=== PATIENT | male | born 1955 | race Caucasian/White ===

== ENCOUNTER 2020-10-29 06:41 | Day surgery (SDC) | payer OTHER ==
--- NOTE | 2020-10-22 11:47 | RAD REPORT ---
EXAM DESCRIPTION: Kvng Manzanares And Shannon (2 Views)10/22/2020 11:28 am CLINICAL HISTORY: Preop for abdominal angiogram COMPARISON: 2019 FINDINGS: Bilateral interstitial lung opacities appear chronic. Lungs appear clear of acute infiltrate. The heart is normal size Postsurgical changes involve the chest. IMPRESSION: No acute abnormalities displayed
[2020-10-22 11:55] LABS: Absolute Lymphocytes (CBC) 2.7 K/uL (0.7-4.9); Basophils % 1.1 % (0-1.3); Hematocrit 44.7 % (39.6-49.0); Lymphocytes % 30.8 % (15.3-44.8); MPV 8.3 fL (7.6-11.3); RBC Red Blood Cell Count 5.03 M/uL (4.33-5.43)
[2020-10-22 11:57] LABS: Protime INR 1.03
[2020-10-29] MEDS ORDERED: HEPA 1000U/500MLS 2,000 UNIT/1,000 ML BAG IV ONE (07:04)
[2020-10-29] MEDS ORDERED: LIDOCAINE 1% 20 ML MDV ONE (07:04)
[2020-10-29 07:09] VITALS: TEMP 97.2
[2020-10-29] MEDS ORDERED: MIDAZOLAM HCL 2 MG/2 ML INJ ONE (07:10)
[2020-10-29] MEDS ORDERED: FENTANYL CITR 100 MCG/2 ML ONE (07:11)
[2020-10-29] MEDS ORDERED: ATROPINE SULF 1 MG/10 ML SYR IV ONE (07:11)
[2020-10-29] MEDS ORDERED: HEPARIN 5000 UNIT/ML 1 ML VIAL ONE (07:11)
[2020-10-29] MEDS ORDERED: NA CHLORIDE 0.9% 500 ML ONE (07:17)
[2020-10-29 09:52] VITALS: BP 146/70; O2SAT 99
== END 2020-10-29 09:54 | disposition home or self-care (01) ==
LOC: CCL 06:41
DX: I70.213 Atherosclerosis of native arteries of extremities with intermittent claudication, bilateral legs (principal); I25.10 Atherosclerotic heart disease of native coronary artery without angina pectoris; I10 Essential (primary) hypertension; Z95.1 Presence of aortocoronary bypass graft; Z20.822 Contact with and (suspected) exposure to COVID-19
CPT/HCPCS: 93005; 85025; 80048; 36415; 85610; 85730; 71046; 36200; 75630; U0003; C1893; C1760; J2250; J3010; J7040; J1644

== ENCOUNTER 2020-11-04 07:33 | Day surgery (SDC) | payer OTHER ==
[2020-11-04] MEDS ORDERED: NA CHLORIDE 0.9% 500 ML ONE (08:00)
[2020-11-04] MEDS ORDERED: HEPARIN 10,000 UNIT/10 ML VIAL IV ONE (08:55)
[2020-11-04] MEDS ORDERED: HEPA 1000U/500MLS 2,000 UNIT/1,000 ML BAG IV ONE (08:55)
[2020-11-04] MEDS ORDERED: ATROPINE SULF 1 MG/10 ML SYR IV ONE (08:55)
[2020-11-04] MEDS ORDERED: FENTANYL CITR 100 MCG/2 ML ONE (08:55)
[2020-11-04] MEDS ORDERED: MIDAZOLAM HCL 2 MG/2 ML INJ ONE (08:55)
[2020-11-04 13:33] VITALS: BP 125/63; TEMP 97.3; O2SAT 99
--- NOTE | 2020-11-04 13:43 | OP ---
Date of Procedure: 11/04/2020 Surgeon: Bryan Anglin MD Gel Coater: Mr. Aaron Delgado. Procedure: Left common iliac artery angiogram and stent. Procedure In Detail: The patient was brought to the systems testing laboratory technician today on 11/04/2020, prepped and draped in the routine sterile fashion, and a 7-Kazakh sheath introduced in the left common femoral artery s uccessfully. A Wholey wire was used to cross the lesion successfully. Following that, an Omnilink E lite 8 x 39 mm stent was deployed from the ostium of the left common iliac included the lesion itself . There was 0% residual. No complications. The patient tolerated the procedure well. Blood Loss: 5 mL. Postoperative Diagnosis: Peripheral arterial disease, status post left common iliac artery stent. Anesthesia: Total conscious sedation 45 minutes. The patient received 7500 of heparin total. The reason more heparin was given because we are actuall y went in with the BLAIR catheter from the left common iliac all the way to the right SFA to take a be tter picture of the right distal vessel below the knee. There were no focal stenosis, just low flow. Angiography of the left SFA distally showed the same things, low flow. No focal stenosis. We will continue his present medical regimen. He will be at bedrest for 2 hours after the procedure and he will go home, and I will see him in the office in the next week or 2 . SO/ALICE Voice ID: [id number] Report ID: [id number]
== END 2020-11-04 14:13 | disposition home or self-care (01) ==
LOC: CCL 07:33
DX: I70.212 Atherosclerosis of native arteries of extremities with intermittent claudication, left leg (principal); I25.10 Atherosclerotic heart disease of native coronary artery without angina pectoris; I65.23 Occlusion and stenosis of bilateral carotid arteries; I10 Essential (primary) hypertension; E78.2 Mixed hyperlipidemia; L40.50 Arthropathic psoriasis, unspecified; Z95.1 Presence of aortocoronary bypass graft; Z86.73 Personal history of transient ischemic attack (TIA), and cerebral infarction without residual deficits; Z87.891 Personal history of nicotine dependence
CPT/HCPCS: 82947 ×2; 85347 ×2; 36245; 36246; 37221; C1893; C1887; C1725; J2250; J3010; J7040; J1644; 36200

== ENCOUNTER 2021-04-08 06:51 | Day surgery (SDC) | payer OTHER ==
[2021-04-08] MEDS ORDERED: NA CHLORIDE 0.9% 1,000 ML ONE (07:20)
[2021-04-08] MEDS ORDERED: INSULIN -REGULAR HUMAN 50 UNIT/0.5 ML ML ONE (07:55)
[2021-04-08] MEDS ORDERED: LIDOCAINE 1% MPF 5 ML VIAL ONE (08:42)
[2021-04-08] MEDS ORDERED: propofoL 200 MG/20 ML VIAL IV ONE (08:42)
--- NOTE | 2021-04-08 09:37 | ENDO RPT ---
[address], [address] COLONOSCOPY PROCEDURE REPORT EXAM DATE: 04/08/2021 PATIENT NAME: Gennaro Serna MR #: [id number] BIRTHDATE: 1955 ATTENDING: Alexsander Lemus DR STATUS: outpatient ORTHOTIC PRACTITIONER: Fabby Fulton RN and Kathryn Fontaine INDICATIONS: The patient is a 65 yr old Male here for a colonoscopy due to bright red bleeding and rectal bleeding PROCEDURE PERFORMED: Colonoscopy with biopsy - cold polypectomy MEDICATIONS: Per Anesthesia. ESTIMATED BLOOD LOSS: None CONSENT: The patient understands the risks and benefits of the procedure and understands that these risks include, but are not limited to: sedation, allergic reaction, infection, perforation and/or bleeding. Alternative means of evaluation and treatment include, among others: physical exam, x-rays, and/or surgical intervention. The patient elects to proceed with this endoscopic procedure. DESCRIPTION OF PROCEDURE: During intra-op preparation period all mechanical medical equipment was checked for proper function. Hand hygiene and appropriate measures for infection prevention was taken. Procedure, possible complications, alternatives including, but not limited to possibility of bleeding, perforation, tear, infection, sepsis, need for surgery, need for blood transfusion, were explained to the patient. After the risks, benefits and alternatives of the procedure were thoroughly explained, Informed consent was verified, confirmed and timeout was successfully executed by the treatment team. The patient was placed in the left lateral position. A digital rectal exam was performed and revealed external hemorrhoids and A digital rectal exam was performed and revealed a palpable rectal mass. After appropriate level of anesthesia, the scope was passed. The EC-[id number] ([id number]) endoscope was introduced through the anus and advanced to the cecum, which was identified by both the appendix and ileocecal valve. The quality of the prep was inadequate. The instrument was then slowly withdrawn as the colon was fully examined. Scope withdrawal time was 15 minutes. COLON FINDINGS: Multiple polypoid shaped and smooth sessile polyps measuring 2-5 mm in size with friable surfaces were found throughout the entire examined colon. A polypectomy was performed using snare cautery, with a cold snare. The resection was complete but the polyp tissue was completely retrieved and sent to histology. There was a single dominant polyp in the Sigmoid colon @ 35cm from verge whish was pedunculated, approximately 10mm in size, removed with hot snare polypectomy, complete retrieval and removal was achieved and it was sent to pathology. The area was tattooed with 0.7cc of ink. The resection was complete, the polyp tissue was completely retrieved and sent to histology. A half circumferential firm, fungating and ulcerated mass with friable surfaces was found in the rectum. Multiple biopsies of the lesion were performed using cold forceps. Complete removal was not possible @ this time. Retroflexed views revealed no abnormalities. The scope was then completely withdrawn from the patient and the procedure terminated. ADVERSE EVENTS: There were no complications. IMPRESSIONS: 1. Multiple sessile polyps ranging between 3-5mm in size were found throughout the entire examined colon; polypectomy was performed using snare cautery, with a cold snare and with cold forceps 2. Half circumferential mass was found in the rectum; multiple biopsies of the lesion were performed RECOMMENDATIONS: 1. await biopsy results 2. fiber rich diet 3. avoid NSAIDS for 2 weeks 4. follow-up: office 2 week(s) 5. hemorrhoidal hygiene 6. surgery RECALL: Return in 7 day(s) for Colonoscopy, pending biopsy results. Inadequate prep - multiple polyps throughout colon Alexsander Lemus DR eSigned: Alexsander Lemus DR 04/08/2021 9:36 AM cc: CPT CODES: ICD9 CODES: PATIENT NAME: Gennaro Serna MR#: [id number]
[2021-04-08 10:37] VITALS: BP 112/50; TEMP 97.3; O2SAT 100
== END 2021-04-08 10:05 | disposition home or self-care (01) ==
LOC: OR 06:51
PROVIDERS: ATTEND Surgery
PROC: 0DBP8ZX Excision of Rectum, Via Natural or Artificial Opening Endoscopic, Diagnostic (ICD-10-PCS; 2021-04-08)
PROC: 0DBN8ZX Excision of Sigmoid Colon, Via Natural or Artificial Opening Endoscopic, Diagnostic (ICD-10-PCS; principal; 2021-04-08 08:00)
DX: K62.5 Hemorrhage of anus and rectum (principal); Z20.822 Contact with and (suspected) exposure to COVID-19; K64.4 Residual hemorrhoidal skin tags; K62.89 Other specified diseases of anus and rectum
CPT/HCPCS: 82947; 88305; 45385; 45380; U0003; J2704; J7030

== ENCOUNTER 2021-06-17 09:34 | Day surgery (SDC) | payer OTHER ==
[2021-06-15 16:17] LABS: Hematocrit 43.6 % (39.6-49.0); Lymphocytes % 34.7 % (15.3-44.8); MPV 8.8 fL (7.6-11.3); RBC Red Blood Cell Count 4.94 M/uL (4.33-5.43)
[2021-06-17] MEDS ORDERED: CEFAZOLIN SODIUM 1 GM/VIAL ONE (10:27)
[2021-06-17] MEDS ORDERED: NA CHLORIDE 0.9% 1,000 ML ONE (10:27)
[2021-06-17] MEDS ORDERED: NA CHLORIDE 0.9% 50 ML ONE (10:27)
[2021-06-17] MEDS ORDERED: NS 0.9% VIAL 20 ML ONE (12:00)
[2021-06-17] MEDS ORDERED: HEPARIN 5000 UNIT/ML 1 ML VIAL ONE (12:01)
[2021-06-17] MEDS ORDERED: BUPIVACAINE 0.25% PF 10 ML VIAL ONE (12:01)
[2021-06-17] MEDS ORDERED: FENTANYL CITR 100 MCG/2 ML ONE ×2 (12:52→14:52)
[2021-06-17] MEDS ORDERED: MIDAZOLAM HCL 2 MG/2 ML INJ ONE (12:52)
[2021-06-17] MEDS ORDERED: LIDOCAINE 2% MPF 5 ML VIAL ONE (12:52)
[2021-06-17] MEDS ORDERED: propofoL 200 MG/20 ML VIAL IV ONE (12:52)
[2021-06-17] MEDS ORDERED: EPHEDRINE SULF 50 MG/ML VIAL ONE (13:09)
[2021-06-17] MEDS ORDERED: ONDANSETRON 4 MG/2 ML VIAL ONE (13:09)
--- NOTE | 2021-06-17 14:00 | P.OP ---
Preoperative diagnosis: Rectal Cancer Postoperative diagnosis: Rectal Cancer Primary procedure: Placement of RIGHT internal jugular chemotherapy port Secondary procedure: ultrasound, flouroscopy used Anesthesia: GETA + Local Estimated blood loss: <20cc Specimen: none Findings: flouroscopy confirmed positoin Complications: None Implants: Port a cath - MRI safe Transferred to: Recovery Room Condition: Good
--- NOTE | 2021-06-17 14:18 | RAD REPORT ---
EXAM DESCRIPTION: RAD - Fluoroscopy <1 Hour - 06/17/2021 2:02 pm FINDINGS: There are total of 17 portable C-arm views obtained during fluoroscopic assisted placement of right-sided Port-A-Cath. No suspicious or unexpected findings. Fluoro time was 0.7 minutes. Cumulative dose was 11.3 mGy.
--- NOTE | 2021-06-17 14:35 | RAD REPORT ---
EXAM DESCRIPTION: RAD - Chest Single View - 06/17/2021 2:29 pm CLINICAL HISTORY: S/P CHEMOTHERAPY PORT INSERTION COMPARISON: Two view chest 10/22/2020 TECHNIQUE: AP portable chest image was obtained 06/17/2021 2:29 pm . FINDINGS: Right-sided Port-A-Cath has been placed via jugular course. Tip is in the distal SVC. No p neumothorax is present. Chronic fibrotic lung changes present in each base. No acute lung parenchymal finding. Prominent card iomediastinal silhouette has not changed. No abnormal pleural fluid collection identifiable peer No a cute bony abnormality seen. No acute aortic findings suspected. IMPRESSION: Right-sided Port-A-Cath placement with the tip in the distal SVC. No pneumothorax.
[2021-06-17 16:02] VITALS: BP 159/87; TEMP 96.7; O2SAT 99
--- NOTE | 2021-06-17 23:50 | OP ---
Date of Procedure: 06/17/2021 Surgeon: Alexsander Lemus MD, Preoperative Diagnosis: Rectal cancer. Postoperative Diagnosis: Rectal cancer. Procedure: Placement of a right internal jugular chemotherapy port with subcutaneous port using fluo roscopy and ultrasound guidance. Anesthesia: General endotracheal plus local with 0.25% Marcaine. Estimated Fluid Loss: 20 cc. Specimen: None. Findings: Fluoroscopy confirmed position as well as ultrasound. Complications: None. Implants: Port-A-Cath, MRI safe version. Disposition: The patient was transferred to recovery room in good condition. Procedure In Detail: After informed was obtained, the patient was brought to the operating room and prepped and draped in the usual sterile fashion. After adequate anesthesia was achieved, the patient was placed in steep Trendelenburg position. Using ultrasound guidance, I cannulated the right inter nal jugular vein on the first attempt using ultrasound guidance and microintroducer set. At this poi nt, the microwire was advanced. Fluoroscopy confirmed position in the confluence of the SVC and into the right atrium. At this point, a small austin incision was made over the insertion point and I plac ed the introducer sheath at this point and removed the microwire. Standard wire was then advanced th rough this without evidence of complication. Fluoroscopy confirmed position in the SVC/atrium of the standard wire at this point. At this point, I decided to cannulate the chest wall and entire tract, anesthetizing the skin for placement of a port approximately 45 cm inferior from the clavicle. I in cised the skin using a 15 blade and dissected down through subcutaneous fat using electrocautery. I removed the segment of fat down to the prepectoral fascia to allow for appropriate landing spot. At this point, I used the tunneling device to bring the port tubing up into the insertion site and sized it appropriately. At this point, approximately 24-25 cm was sized and found to be appropriate posit ioning. I attempted to place the introducer sheath at this point over the wire, but there was some d ifficulty in resistance. I suctioned the inner portion out and dilated up the tract without incident or complication under fluoroscopy, but the sheath had a small rent in the side and as such, a new se t was opened and I used a new introducer sheath. Without incident or complication, it was then advan matti easily. Fluoroscopy confirmed position. I then removed the standard wire at this point, using Zakia tian technique after the introducer sheath was placed in a good position and confirmed with fluor oscopy. I then introduced the catheter deep into the atrium, at this point and removed the introduce r sheath. At this point, I then used fluoroscopy to pull the catheter back to approximately 24 cm at the exit site on the chest wall to allow for proper positioning at the confluence of the SVC. At th is point, I trimmed the catheter appropriately after snapping the end of it off to prevent any fluid leakage and attached the lock collar to the tubing and secured the Port-A-Cath port to the tubing at this point, and secured the collar at this point. I flushed with saline quite easily. Fluoroscopy c onfirmed position at this point. After it was placed in the normal anatomic position in the chest po cket, I then secured it with the chest pocket using three 2-0 Prolene sutures and flushed once again with saline. Fluoroscopy confirmed position and it was functional and flushing quite easily. I then packed it with heparin super flush at this point, irrigated the skin and took the patient out of hallie ep Trendelenburg position, closed the neck incision site after irrigating it with interrupted nylon s uture and closed the deep dermal planes of the chest port with interrupted 3-0 Vicryl in the deep rosina mal plane and the skin was closed with 4-0 Monocryl in a running fashion. Dermabond was placed over top. The patient tolerated the procedure without any complication and transferred to PACU in good co ndition. A chest x-ray will be performed in PACU. The patient tolerated the procedure without any other issues and all counts were correct at the end of the case. TK/ISSAL Voice ID: [id number] Report ID: [id number]
== END 2021-06-17 15:40 | disposition home or self-care (01) ==
LOC: OR 09:34
PROVIDERS: ATTEND Surgery
PROC: 0JH60WZ Insertion of Totally Implantable Vascular Access Device into Chest Subcutaneous Tissue and Fascia, Open Approach (ICD-10-PCS; principal; 2021-06-17 13:15)
DX: C20 Malignant neoplasm of rectum (principal); Z20.822 Contact with and (suspected) exposure to COVID-19
CPT/HCPCS: 85025; 36415; 82947; 71045; 76000; 36561; U0003; J2704; J1644 ×2; J2250; J3010 ×2; J7030; J2405; J0690; C1788

== ENCOUNTER 2021-08-15 11:25 | Observation (INO) | payer OTHER ==
--- OUTSIDE RECORDS SUMMARY | 2021-08-15 11:27 | XMS REPORT | Continuity of Care Document ---
:[address] [facility] t Address [address] [place] [address] Dr. Montez [address] [place] [address] Care Team Providers Name Role Phone FUNG Attending Clinician Unavailable Problems This patient has no known problems. Allergies, Adverse Reactions, Alerts This patient has no known allergies or adverse reactions. Medications This patient has no known medications. Procedures This patient has no known procedures. Encounters Start End Encounter Admission Attending Care Care Encounter Source Date/Time Date/Time Type Type Clinicians Facility Department ID 2021-06-02 2021-06-02 Outpatient [facility] [id number] [place] 00:00:00 00:00:[address] 2021-06-02 2021-06-02 Outpatient [facility] [id number] [place] 00:00:00 00:00:[address] 2021-05-31 2021-05-31 Outpatient [facility] [id number] [place] 00:00:00 00:00:[address] 2021-05-30 2021-05-30 Outpatient [facility] 2100 [id number] [place] 00:00:00 00:00:[address] Results This patient has no known results.
[2021-08-15] MEDS ORDERED: NA CHLORIDE 0.9% 1,000 ML ONE ×2 (11:36→13:50)
[2021-08-15 11:41] LABS: Absolute Lymphocytes (CBC) 1.1 K/uL (0.7-4.9); Hematocrit 31.6 % (39.6-49.0); MPV 7.6 fL (7.6-11.3); RBC Red Blood Cell Count 3.59 M/uL (4.33-5.43)
[2021-08-15 12:05] LABS: Potassium 3.3 mmol/L (3.5-5.1)
[2021-08-15 12:16] LABS: Troponin High Sensitivity 152.1 pg/mL (<58.9)
--- NOTE | 2021-08-15 12:17 | RAD REPORT ---
EXAM DESCRIPTION: RAD - Chest Single View - 08/15/2021 12:11 pm CLINICAL HISTORY: hypotension Chest pain. COMPARISON: Chest Single View dated 06/17/2021; Chest Pa And Lat (2 Views) dated 10/22/2020; Chest Pa And Lat (2 Views) dated 09/29/2019; CHEST SINGLE VIEW dated 01/07/2014 FINDINGS: Portable technique limits examination quality. Mild interstitial pulmonary edema. The heart is upper limit normal in size. Sternotomy wires are pres ent.Right port catheter its tip in the SVC. IMPRESSION: Mild CHF.
--- NOTE | 2021-08-15 13:27 | ER ---
Nurse's Notes [facility] Name: Gennaro Serna Age: 65 yrs Sex: Male : 1955 Arrival Date: 08/15/2021 Time: 11:28 Bed 7 Private MD: Diagnosis: Hypotension, unspecified;hypokalemia;hyponatremia;anemia;recal cancer;elevated troponin Presentation: 08/15 11:33 Chief complaint: EMS states: Toned out by pt's for low BP reported 72 systolic and jl7 high BGL reported 380. Current BP is 78/48, pt currently being treated with chemo for rectal cancer, last treatment Sunday. Coronavirus screen: At this time, the client does not indicate any symptoms associated with coronavirus-19. Ebola Screen: No symptoms or risks identified at this time. Initial Sepsis Screen: Does the patient meet any 2 criteria? No. Patient's initial sepsis screen is negative. Does the patient have a suspected source of infection? No. Patient's initial sepsis screen is negative. Risk Assessment: Do you want to hurt yourself or someone else? Patient reports no desire to harm self or others. Onset of symptoms was August 15, 2021. 11:33 Method Of Arrival: EMS: [facility] jl7 11:33 Acuity: YUE 3 jl7 Triage Assessment: 11:41 General: Appears in no apparent distress. uncomfortable, Behavior is calm, cooperative, jl7 appropriate for age. Pain: Denies pain. Neuro: Level of Consciousness is awake, alert, obeys commands, Oriented to person, place, time, situation. Cardiovascular: Patient's skin is warm and dry. Respiratory: Airway is patent Respiratory effort is even, unlabored, Respiratory pattern is regular, symmetrical. GI: Patient currently denies diarrhea, nausea, vomiting. : Denies burning with urination, pain with urination. Derm: Skin is pink, warm \\T\\ dry. Historical: - Allergies: 11:40 No Known Allergies; jl7 - Home Meds: 11:40 aspirin 81 mg Oral chew 1 tab once daily [Active]; Glipizide Oral [Active]; jl7 - PMHx: 11:40 Hypertension; Myocardial infarction; rectal cancer; Diabetes mellitus; jl7 - Immunization history:: Client reports receiving the 2nd dose of the Covid vaccine. - Social history:: Smoking status: Patient denies any tobacco usage or history of. Screenin:30 Abuse screen: Denies threats or abuse. Denies injuries from another. Nutritional [facility] screening: No deficits noted. Tuberculosis screening: No symptoms or risk factors identified. Fall Risk IV access (20 points). Total Cabrera Fall Scale indicates No Risk (0-24 pts). Assessment: 12:00 General: See triage. [facility] 13:58 Reassessment: Pt refusing to be admitted, states "I have a MRI tomorrow in [place] [address] that I cannot miss." ERD notified and to bedside, pt continues to refuse to stay. Reports Dr. Macdonald has already been by to see him and he told Dr. Macdonald that he was not staying. Notified Dr. Macdonald via [employer], awaiting response at this time. 15:00 Reassessment: Dr. Macdonald at bedside discussing plan of care. Dr. Macdonald informed pt [facility] the he plans to discharge pt in the morning in time for pt to make his MRI appointment, pt verbalized understanding. 17:00 Reassessment: Pt continues to request to see Dr. Macdonald. Attempted to contact [facility] hospitalist, left voice mail, awaiting response at this time. 18:00 Reassessment: Patient appears in no apparent distress at this time. Patient and/or jl7 family updated on plan of care and expected duration. Pain level reassessed. Patient is alert, oriented x 3, equal unlabored respirations, skin warm/dry/pink. Patient states feeling better. Patient states symptoms have improved. Vital Signs: 11:33 BP 89 / 44; Pulse 101; Resp 15; Temp 98.4; Pulse Ox 100% ; Pain 0/10; jl7 11:40 BP 99 / 69; Pulse 95; Resp 15; Pulse Ox 100% ; jl7 12:00 BP 100 / 68; Pulse 96; Resp 15; Pulse Ox 100% ; jl7 12:41 BP 88 / 62; Pulse 99; Resp 15; Pulse Ox 100% ; jl7 13:00 BP 88 / 58; Pulse 98; Resp 15; Pulse Ox 100% ; jl7 13:15 BP 91 / 66; Pulse 97; Resp 15; Pulse Ox 100% ; jl7 13:30 BP 101 / 71; Pulse 92; Resp 15; Pulse Ox 100% ; jl7 13:56 BP 108 / 76; Pulse 95; Resp 15; Pulse Ox 100% ; jl7 14:15 BP 89 / 62; Pulse 91; Resp 15; Pulse Ox 100% ; jl7 14:30 BP 105 / 65; Pulse 100; Resp 15; Pulse Ox 100% ; jl7 15:00 BP 93 / 55; Pulse 93; Resp 16; Pulse Ox 100% ; jl7 15:30 BP 106 / 66; Pulse 91; Resp 16; Pulse Ox 100% ; jl7 16:00 BP 100 / 69; Pulse 93; Resp 17; Pulse Ox 100% ; jl7 16:30 BP 106 / 71; Pulse 89; Resp 15; Pulse Ox 100% ; jl7 17:00 BP 127 / 87; Pulse 106; Resp 14; Pulse Ox 100% ; jl7 17:30 BP 103 / 49; Pulse 96; Resp 15; Pulse Ox 100% ; jl7 18:00 BP 100 / 56; Pulse 93; Resp 16; Pulse Ox 100% ; jl7 18:30 BP 99 / 58; Pulse 95; Resp 14; Pulse Ox 100% ; jl7 19:30 BP 104 / 72; Pulse 88; Resp 15 S; Pulse Ox 100% on R/A; as6 21:00 BP 119 / 66; Pulse 96; Resp 14 S; Pulse Ox 100% on R/A; as6 23:00 BP 116 / 74; Pulse 92; Resp 18 S; Pulse Ox 99% on R/A; as6 08/16 01:00 BP 108 / 53; Pulse 102; Resp 18 S; Pulse Ox 100% on R/A; as6 ED Course: 08/15 11:28 Patient arrived in ED. jl7 11:29 Alex Reyna DO is Attending Physician. ms3 11:30 Patient has correct armband on for positive identification. Placed in gown. Bed in low jl7 position. Call light in reach. Side rails up X 1. Client placed on continuous cardiac and pulse oximetry monitoring. NIBP monitoring applied. 11:30 Initial lab(s) drawn, by me, sent to lab. Inserted saline lock: 20 gauge in right aa5 antecubital area, using aseptic technique. Blood collected. 11:33 Shaheed Almeida RN is Primary Nurse. jl7 11:40 Triage completed. jl7 11:41 Arm band placed on right wrist. jl7 12:13 XRAY Chest (1 view) In Process Unspecified. EDMS 13:25 Ashley Macdonald MD is Hospitalizing Provider. ms3 18:00 No provider procedures requiring assistance completed. Patient admitted, IV remains in jl7 place. intact, No redness/swelling at site. 19:00 Report given to CHIVO Mathew. jl7 19:11 Primary Nurse role handed off by Shaheed Almeida RN mw2 19:59 Pino Ceja, CHIVO is Primary Nurse. as6 08/16 03:48 Notified Nurse Practitioner and/or Physician Client Services Manager of a critical lab result(s), bb potassium of 2.7 Maksim [place] RESEARCH PROFESSOR OF BIOSTATISTICS notified. 07:57 Primary Nurse role handed off by Pino Ceja RN 07:58 Dwayne Motta RN is Primary Nurse. bp Administered Medications: 08/15 11:33 Drug: NS 0.9% 500 ml Route: IV; Rate: 1000 ml; Site: right antecubital; aa5 12:00 Follow up: Response: No adverse reaction; IV Status: Completed infusion; IV Intake: jl7 500ml 12:45 Drug: NS 0.9% 500 ml Route: IV; Rate: bolus; Site: right antecubital; jl7 13:15 Follow up: Response: No adverse reaction; IV Status: Completed infusion; IV Intake: jl7 500ml 13:56 Drug: NS 0.9% 1000 ml Route: IV; Rate: 125 ml/hr; Site: right antecubital; jl7 08/16 01:20 Follow up: Response: No adverse reaction; IV Status: Completed infusion; IV Intake: as6 1000ml 08/15 18:00 Drug: Glucotrol (glipiZIDE) 10 mg Route: PO; jl7 08/16 01:20 Follow up: Response: No adverse reaction as08/15 19:24 Not Given (Other Intervention Used): Glucotrol (glipiZIDE) 7 mg PO once Medication: 13:58 VIS not applicable for this client. jl7 Intake: 12:00 IV: 500ml; Total: 500ml. jl 13:15 IV: 500ml; Total: 1000ml. jl7 08/16 01:20 IV: 1000ml; Total: 2000ml. as6 Outcome: 08/15 13:26 Decision to Hospitalize by Provider. ms3 08/16 01:19 Admitted to ER Hold. Please see [facility] for further documentation. as6 Condition: stable Instructed on the need for admit. 08:45 Patient left the ED. bp Signatures: Dispatcher [employer] EDMS Erlinda Zuniga Brenda, RN RN bb Lakeisha Castellano, RN RN aa5 Shaheed Almeida RN RN jl7 Dwayne Motta RN RN bp Kimberly Patel mw2 Alex Reyna, DO ms3 Pino Ceja, CHIVO RN as6
--- NOTE | 2021-08-15 13:27 | EDPHYS ---
Physician Documentation [facility] Name: Gennaro Serna Age: 65 yrs Sex: Male : 1955 Arrival Date: 08/15/2021 Time: 11:28 Bed 7 Private MD: ED Physician Alex Reyna HPI: 08/15 12:28 This 65 yrs old Male presents to ER via EMS with complaints of General Weakness. ms3 12:28 Details of fall: The patient fell from an upright position, while standing. Onset: The ms3 symptoms/episode began/occurred just prior to arrival. Associated injuries: The patient sustained no obvious injury. Severity of symptoms: At their worst the symptoms were mild, in the emergency department the symptoms are unchanged. Historical: - Allergies: 11:40 No Known Allergies; jl7 - Home Meds: 11:40 aspirin 81 mg Oral chew 1 tab once daily [Active]; Glipizide Oral [Active]; jl7 - PMHx: 11:40 Hypertension; Myocardial infarction; rectal cancer; Diabetes mellitus; jl7 - Immunization history:: Client reports receiving the 2nd dose of the Covid vaccine. - Social history:: Smoking status: Patient denies any tobacco usage or history of. ROS: 12:28 Constitutional: Negative for fever, and chills. Neck: Negative for injury, pain, and ms3 swelling, Cardiovascular: Negative for chest pain, and palpitations. Respiratory: Negative for shortness of breath, cough, wheezing, and pleuritic chest pain, Abdomen/GI: Negative for abdominal pain, nausea, vomiting, diarrhea, and constipation, Skin: Negative for injury, rash, and discoloration. 12:28 MS/extremity: Positive for Generalized weakness. 12:28 All other systems are negative. Exam: 11:45 ECG was reviewed by the Attending Physician. ms3 12:29 Constitutional: This is a well developed, well nourished patient who is awake, alert, ms3 and in no acute distress. Head/Face: Normocephalic, atraumatic. Neck: Trachea midline, no cervical lymphadenopathy. Supple, full range of motion without nuchal rigidity, or vertebral point tenderness. No Meningismus. Chest/axilla: Normal chest wall appearance and motion. Nontender with no deformity. Cardiovascular: Regular rate and rhythm with a normal S1 and S2. No gallops, murmurs, or rubs. Normal PMI, no JVD. No pulse deficits. Respiratory: Lungs have equal breath sounds bilaterally, clear to auscultation and percussion. No rales, rhonchi or wheezes noted. No increased work of breathing, no retractions or nasal flaring. Abdomen/GI: Soft, non-tender, with normal bowel sounds. No distension or tympany. No guarding or rebound. No evidence of tenderness throughout. Back: No spinal tenderness. No costovertebral tenderness. Full range of motion. Skin: Warm, dry with normal turgor. Normal color with no rashes, no lesions, and no evidence of cellulitis. MS/ Extremity: Pulses equal, no cyanosis. Neurovascular intact. Full, normal range of motion. Psych: Awake, alert, with orientation to person, place and time. Behavior, mood, and affect are within normal limits. Vital Signs: 11:33 BP 89 / 44; Pulse 101; Resp 15; Temp 98.4; Pulse Ox 100% ; Pain 0/10; jl7 11:40 BP 99 / 69; Pulse 95; Resp 15; Pulse Ox 100% ; jl7 12:00 BP 100 / 68; Pulse 96; Resp 15; Pulse Ox 100% ; jl7 12:41 BP 88 / 62; Pulse 99; Resp 15; Pulse Ox 100% ; jl7 13:00 BP 88 / 58; Pulse 98; Resp 15; Pulse Ox 100% ; jl7 13:15 BP 91 / 66; Pulse 97; Resp 15; Pulse Ox 100% ; jl7 13:30 BP 101 / 71; Pulse 92; Resp 15; Pulse Ox 100% ; jl7 13:56 BP 108 / 76; Pulse 95; Resp 15; Pulse Ox 100% ; jl7 14:15 BP 89 / 62; Pulse 91; Resp 15; Pulse Ox 100% ; jl7 14:30 BP 105 / 65; Pulse 100; Resp 15; Pulse Ox 100% ; jl7 15:00 BP 93 / 55; Pulse 93; Resp 16; Pulse Ox 100% ; jl7 15:30 BP 106 / 66; Pulse 91; Resp 16; Pulse Ox 100% ; jl7 16:00 BP 100 / 69; Pulse 93; Resp 17; Pulse Ox 100% ; jl7 16:30 BP 106 / 71; Pulse 89; Resp 15; Pulse Ox 100% ; jl7 17:00 BP 127 / 87; Pulse 106; Resp 14; Pulse Ox 100% ; jl7 17:30 BP 103 / 49; Pulse 96; Resp 15; Pulse Ox 100% ; jl7 18:00 BP 100 / 56; Pulse 93; Resp 16; Pulse Ox 100% ; jl7 18:30 BP 99 / 58; Pulse 95; Resp 14; Pulse Ox 100% ; jl7 19:30 BP 104 / 72; Pulse 88; Resp 15 S; Pulse Ox 100% on R/A; as6 21:00 BP 119 / 66; Pulse 96; Resp 14 S; Pulse Ox 100% on R/A; as6 23:00 BP 116 / 74; Pulse 92; Resp 18 S; Pulse Ox 99% on R/A; as6 08/16 01:00 BP 108 / 53; Pulse 102; Resp 18 S; Pulse Ox 100% on R/A; as6 MDM: 08/15 11:33 Patient medically screened. ms3 12:29 Differential diagnosis: Dehydration vs ACS vs Jacky. ms3 13:27 Data reviewed: vital signs, nurses notes, lab test result(s), EKG, radiologic studies. ms3 Data interpreted: groundwater monitoring technician: rate is 99 beats/min, rhythm is normal sinus rhythm, with no ectopy, Interpretation: normal rate, normal rhythm, Pulse oximetry: on room air is 100 %. Interpretation: normal. Counseling: I had a detailed discussion with the patient and/or guardian regarding: the historical points, exam findings, and any diagnostic results supporting the discharge/admit diagnosis, lab results, radiology results, the need for further work-up and treatment in the hospital. ED course: Discussed case with Dr Macdonald. Patient BP improved with NS bolus. Discussed need for admission with patient and he agrees with plan. All questions answered. Patient has remained stable in the ED.. 08/15 11:30 Order name: Basic Metabolic Panel; Complete Time: 12:27 ms3 08/15 11:30 Order name: CBC with Diff ms3 08/15 11:30 Order name: Troponin HS; Complete Time: 12:27 ms3 08/15 11:45 Order name: Glucose, Ancillary Testing; Complete Time: 12:27 EDMS 08/15 11:48 Order name: Manual Differential EDMS 08/15 13:29 Order name: COVID-19 SARS RT PCR (Document "Date of Onset" if Symptomatic) ms3 08/15 16:00 Order name: Cortisol EDMS 08/15 16:00 Order name: Thyroid Stimulating Hormone EDMS 08/15 16:00 Order name: CBC with Automated Diff EDMS 08/15 16:00 Order name: CBC with Automated Diff EDMS 08/15 16:00 Order name: Comprehensive Metabolic Panel EDMS 08/15 16:00 Order name: Comprehensive Metabolic Panel EDMS 08/15 16:00 Order name: Magnesium EDMS 08/15 16:00 Order name: Magnesium EDMS 08/15 11:30 Order name: XRAY Chest (1 view); Complete Time: 12:27 ms3 08/15 11:30 Order name: EKG; Complete Time: 11:31 ms3 08/15 16:00 Order name: 60g Consistent Carbohydrate (ADA 1800/2000) EDMS 08/15 16:00 Order name: Magnesium EDMS 08/15 16:00 Order name: Magnesium EDMS 08/15 16:00 Order name: Troponin High Sensitivity EDMS 08/15 16:00 Order name: Troponin High Sensitivity EDMS 08/15 16:00 Order name: Troponin High Sensitivity EDMS 08/15 19:10 Order name: Glucose, Ancillary Testing EDMS 08/16 00:16 Order name: Glucose, Ancillary Testing EDMS 08/16 07:42 Order name: Glucose, Ancillary Testing EDMS 08/15 11:30 Order name: Cardiac monitoring; Complete Time: 11:52 ms3 08/15 11:30 Order name: EKG - Nurse/Tech; Complete Time: 11:52 ms3 08/15 11:30 Order name: IV Saline Lock; Complete Time: 11:42 ms3 08/15 11:30 Order name: Labs collected and sent; Complete Time: 11:42 ms3 08/15 11:30 Order name: O2 Per Protocol; Complete Time: 11:42 ms3 08/15 11:30 Order name: O2 Sat Monitoring; Complete Time: 11:42 ms3 EC:45 Rate is 99 beats/min. Rhythm is regular. ME interval is normal. Clinical impression: ms3 NSR with RBBB. Administered Medications: 11:33 Drug: NS 0.9% 500 ml Route: IV; Rate: 1000 ml; Site: right antecubital; aa5 12:00 Follow up: Response: No adverse reaction; IV Status: Completed infusion; IV Intake: jl7 500ml 12:45 Drug: NS 0.9% 500 ml Route: IV; Rate: bolus; Site: right antecubital; jl7 13:15 Follow up: Response: No adverse reaction; IV Status: Completed infusion; IV Intake: jl7 500ml 13:56 Drug: NS 0.9% 1000 ml Route: IV; Rate: 125 ml/hr; Site: right antecubital; jl7 08/16 01:20 Follow up: Response: No adverse reaction; IV Status: Completed infusion; IV Intake: as6 1000ml 08/15 18:00 Drug: Glucotrol (glipiZIDE) 10 mg Route: PO; jl7 08/16 01:20 Follow up: Response: No adverse reaction as6 08/15 19:24 Not Given (Other Intervention Used): Glucotrol (glipiZIDE) 7 mg PO once jl7 Disposition Summary: 08/15/21 13:26 Hospitalization Ordered Hospitalization Status: Inpatient Admission ms3 Provider: Ashley Macdonald ms3 Condition: Guarded ms3 Problem: new ms3 Symptoms: are unchanged ms3 Bed/Room Type: Standard ms3 Location: [facility] ER HOLD(08/16/21 00:08) bb Room Assignment: ERHOLD-(08/16/21 00:08) bb Diagnosis - Hypotension, unspecified ms3 - hypokalemia ms3 - hyponatremia ms3 - anemia ms3 - recal cancer ms3 - elevated troponin ms3 Forms: - Medication Reconciliation Form ms3 - SBAR form ms3 Signatures: Dispatcher [employer] EDKS Azalea Rasmussen RN RN mw Ballard, Brenda RN RN bb Lakeisha Castellano, RN RN aa5 Maksim Henning, NETWORKING TECHNOLOGY INSTRUCTOR-C NETWORKING TECHNOLOGY INSTRUCTOR-Ebony1 Shaheed Almeida RN RN jl7 Alex Reyna DO DO ms3 Pino Ceja RN as6 Corrections: (The following items were deleted from the chart) 20:31 13:26 Telemetry/MedSurg (Inpatient) ms3 mw 20:31 13:26 ms3 mw 23:19 20:31 [facility] ER HOLD [facility] 23:19 20:31 ERHOLD- [facility] 08/16 00:08 08/15 23:19 Telemetry/MedSurg (Inpatient) [facility] 08/16 00:08 08/15 23:[address] [place] [address]
--- NOTE | 2021-08-15 15:49 | P.HP ---
Certification for Inpatient Patient admitted to: Observation With expected LOS: <2 Midnights Patient will require the following post-hospital care: None Practitioner: I am a practitioner with admitting privileges, knowledge of patient current condition, hospital course, and medical plan of care. Services: Services provided to patient in accordance with Admission requirements found in Title 42 Section 412.3 of the Code of Federal Regulations Patient History Date of Service: 08/15/21 Reason for admission: Weakness and fall History of Present Illness: 65-year-old male with history of hypertension, CAD, diabetes mellitus, recent rectal cancer on chemo therapy follows with Dr. Colon, presented to the hospital today because of weakness since the last 3 days. He denies any recent nausea or vomiting. He denies any associated diarrhea but admits to some loose stools. He had fallen today due to his weakness but he denies any syncope or loss of consciousness. He denies any chest pain. On admission in the ED he was noted with low potassium of 3.2, hyponatremia at 130, elevated troponin at 158 with systolic blood pressure in the 70s. Blood pressure improved with IV fluid to the low 100s now. Patient is being admitted for electrolyte disorder, hypotension and weakness. He states since he has been on chemo he has been getting high-dose steroids during chemo as well as persistent hyperglycemia at home. He states his home glucose has been running in the high 300s to 400s. He admits to compliance with his oral hypoglycemic Patient repeatedly states he would like to go home because he had an MRI scheduled in the a.m. which she does not want to miss. Repeated discussion with the patient for admission for observation and optimization of blood pressure done Allergies No Known Allergies Allergy (Verified 06/15/21 15:25) Home Medications: Aspirin 81 mg PO DAILY 12/13/13 Losartan/Hydrochlorothiazide [Losartan-Hctz 50-12.5 mg Tab] 1 each PO DAILY 04/06/21 Simvastatin 40 mg PO DAILY 04/06/21 Glipizide [Glipizide ER] 10 mg PO DAILY 06/15/21 Guselkumab [Tremfya] 100 mg SQ DIRECTED 06/15/21 - Past Medical/Surgical History Diabetic: No -: HTN -: CABG - Social History Smoking Status: Never smoker Alcohol use: No CD- Drugs: No Caffeine use: Yes Place of Residence: Home Review of Systems General: Weakness, Malaise Physical Examination - Physical Exam General: Alert, In no apparent distress, Oriented x3 HEENT: Atraumatic, Normocephalic, PERRLA Neck: Supple, 2+ carotid pulse no bruit, JVD not distended Cardiovascular: Normal pulses, Regular rate/rhythm, Normal S1 S2 Gastrointestinal: Normal bowel sounds, Soft and benign, Non-distended Musculoskeletal: No clubbing, No swelling Integumentary: No rashes Neurological: Normal gait, Normal speech, Normal strength at 5/5 x4 extr External genitalia: No edema, No lesions - Studies Laboratory Data (last 24 hrs) 08/15/21 11:30: WBC 6.3, Hgb 11.2 L, Hct 31.6 L, Plt Count 138 L 08/15/21 11:30: Sodium 130 L, Potassium 3.3 L, BUN 19 H, Creatinine 0.78, Glucose 387 H Assessment and Plan Discharge Plan: Home - Advance Directives Does patient have a Living Will: No Does patient have a Durable POA for Healthcare: No Physician Review: Patient Assessed, Agree with Above Assessment and Plan Physician Review Additional Text: Impression Weakness/falllikely due to hypotension Hypotensionlikely from medication and recent chemo, rule out adrenal insufficiency Hyperglycemia with DMdue to recent steroid use Elevated troponinasymptomatic, no new EKG changes Rectal canceron chemo Hypokalemia/Pseudohyponatremia Plan We will admit patient to observation -Will replete electrolyte with gentle IV fluid -Monitor magnesium level -Trend troponin, if still persistent, might need cardiology eval -Strict glycemic control increase glipizide dosage -Subcutaneous Lovenox for DVT prophylaxis Time Spent Managing Pts Care (In Minutes): 55
[2021-08-15] MEDS ORDERED: ACETAMINOPHEN 500 MG TAB PO PRN (15:53)
[2021-08-15] MEDS ORDERED: ALBUTEROL 2.5 MG/3 ML NEB SOL NEB PRN (15:53)
[2021-08-15] MEDS ORDERED: ONDANSETRON 4 MG/2 ML VIAL IV PRN (15:53)
[2021-08-15] MEDS ORDERED: MORPHINE 2 MG/ML SYR IV PRN (15:53)
[2021-08-15] MEDS ORDERED: HYDRALAZINE HCL 20 MG/ML VIAL IV PRN (15:56)
[2021-08-15] MEDS ORDERED: GLUCAGON 1 MG/VIAL IM PRN (15:56)
[2021-08-15] MEDS ORDERED: D10W 250 ML BAG IV PRN (16:14)
[2021-08-15 16:30] LABS: Anisocytosis 1+; Blood Morphology Comment NOTED (NOT SEEN); Platelet Estimate DECR; Poikilocytosis 1+
[2021-08-15] MEDS: INSULIN -REGULAR HUMAN 50 UNIT/0.5 ML ML SQ SCH ×2 (16:30→21:00)
[2021-08-15 17:01] LABS: Magnesium 1.9 mg/dL (1.8-2.4); Thyroid Stimulating Hormone 1.38 uIU/mL (0.360-3.740)
[2021-08-15] MEDS ORDERED: HEPARIN 5000 UNIT/ML 1 ML VIAL SQ SCH (21:00)
[2021-08-16] MEDS ORDERED: HEPARIN 5000 UNIT/ML 1 ML VIAL ONE (00:14)
[2021-08-16] MEDS ORDERED: NS KCL 20MEQ 1,000 ML IV ONE (00:14)
[2021-08-16] MEDS: NS KCL 20MEQ 20 MEQ/1,000 ML BAG IV SCH ×2 (00:16→05:20)
[2021-08-16 03:33] LABS: Absolute Lymphocytes (CBC) 1.1 K/uL (0.7-4.9); Hematocrit 24.5 % (39.6-49.0); Lymphocytes % 30.5 % (15.3-44.8); MPV 7.4 fL (7.6-11.3); RBC Red Blood Cell Count 2.86 M/uL (4.33-5.43)
[2021-08-16 03:47] LABS: Albumin 1.9 g/dL (3.4-5.0); Bilirubin Total 0.6 mg/dL (0.2-1.0); Protein, Total 4.7 g/dL (6.4-8.2)
[2021-08-16 03:48] LABS: Potassium 2.7 mmol/L (3.5-5.1)
[2021-08-16 04:12] VITALS: BMI 28.0
[2021-08-16] MEDS: INSULIN -REGULAR HUMAN 50 UNIT/0.5 ML ML SQ SCH (07:30)
[2021-08-16] MEDS ORDERED: GLIPIZIDE S.A. 5 MG TAB PO SCH (08:00)
[2021-08-16] MEDS ORDERED: POTASSIUM CL SA 10 MEQ TAB PO ONE (08:00)
[2021-08-16 08:15] VITALS: BP 124/79; TEMP 98
[2021-08-16] MEDS ORDERED: HOME MED 1 EA UNK (Simvastatin [Simvastatin] 40 MG Tablet) PO SCH (09:00)
[2021-08-16] MEDS ORDERED: HOME MED 1 EA UNK (Glipizide [Glipizide Er] 10 MG Tab.Er.24) PO SCH (09:00)
[2021-08-16] MEDS ORDERED: ATORVASTATIN 20 MG TAB PO SCH (09:00)
[2021-08-16] MEDS ORDERED: ASPIRIN EC 81 MG TAB PO SCH (09:00)
--- NOTE | 2021-08-16 09:11 | EKG ---
Test Date: 2021-08-15 Test Time: 11:45:03 Dental Cream Maker: HEIDI MEASUREMENT RESULTS: Intervals: Rate: 99 FL: 126 QRSD: 142 QT: 406 QTc: 521 Center: P: 67 FL: 126 QRS: 78 T: 76 INTERPRETIVE STATEMENTS: Normal sinus rhythm Right bundle branch block Abnormal ECG Compared to ECG 01/07/2014 07:30:06 Right bundle-branch block now present T-wave abnormality no longer present Prolonged QT interval no longer present Electronically Signed On 08-16-21 09:08:23 CDT by Bryan Anglin
[2021-08-16 09:32] VITALS: O2SAT 100
--- NOTE | 2021-08-16 12:39 | P.DS ---
Admission Date: 08/15/21 Discharge Date: 08/16/21 Disposition: ROUTINE DISCHARGE Discharge Condition: FAIR Reason for Admission: Weakness and fall Brief History of Present Illness: 65-year-old male with history of hypertension, CAD, diabetes mellitus, recent rectal cancer on chemo therapy follows with Dr. Colon, presented to the hospital today because of weakness since the last 3 days. He denies any recent nausea or vomiting. He denies any associated diarrhea but admits to some loose stools. He had fallen today due to his weakness but he denies any syncope or loss of consciousness. He denies any chest pain. On admission in the ED he was noted with low potassium of 3.2, hyponatremia at 130, elevated troponin at 158 with systolic blood pressure in the 70s. Blood pressure improved with IV fluid to the low 100s now. Patient is being admitted for electrolyte disorder, hypotension and weakness. He states since he has been on chemo he has been getting high-dose steroids during chemo as well as persistent hyperglycemia at home. He states his home glucose has been running in the high 300s to 400s. He admits to compliance with his oral hypoglycemic Patient repeatedly states he would like to go home because he had an MRI scheduled in the a.m. which she does not want to miss. Repeated discussion with the patient for admission for observation and optimization of blood pressure done Hospital Course: Hospital course Patient was admitted with hypotension as well as fall, on chemotherapy. He was felt to be volume depleted. He received IV fluid with improvement in his blood pressure. He was monitored overnight. He had hypokalemia which was repleted. His magnesium was also repleted. Patient had mild elevation in troponin. We subsequently trended down. He was asymptomatic. Patient was repeatedly anxious to go home. He will be discharged home now to get his outpatient scheduled MRI. Advised to hold off his blood pressure medicationlosartan/HCTZ for now Follow-up with PCP in 3 days with repeat potassium and magnesium check. Vital Signs/Physical Exam: Temp Pulse Resp BP Pulse Ox 98 F 100 H 17 124/79 99 08/16/21 08:00 08/16/21 08:00 08/16/21 08:00 08/16/21 08:00 08/16/21 08:00 General: Alert, In no apparent distress, Oriented x3 Neck: Supple Respiratory: Clear to auscultation bilaterally, Normal air movement Cardiovascular: No edema, Normal pulses, Regular rate/rhythm Gastrointestinal: Normal bowel sounds, Soft and benign, Non-distended Musculoskeletal: No clubbing, No swelling Integumentary: No rashes, No breakdown Laboratory Data at Discharge: WBC 3.5 K/uL (4.3-10.9) L D 08/16/21 03:07 Hgb 9.1 g/dL (13.6-17.9) L 08/16/21 03:07 Hct 24.5 % (39.6-49.0) L D 08/16/21 03:07 Plt Count 112 K/uL (152-406) L 08/16/21 03:07 Sodium 133 mmol/L (136-145) L 08/16/21 03:07 Potassium Cancelled 08/16/21 08:00 BUN 10 mg/dL (7-18) 08/16/21 03:07 Creatinine 0.42 mg/dL (0.55-1.3) L 08/16/21 03:07 Glucose 152 mg/dL (74-106) H 08/16/21 03:07 Magnesium 1.7 mg/dL (1.8-2.4) L 08/16/21 03:07 Total Bilirubin 0.6 mg/dL (0.2-1.0) 08/16/21 03:07 AST 16 U/L (15-37) 08/16/21 03:07 ALT 29 U/L (12-78) 08/16/21 03:07 Alkaline Phosphatase 84 U/L (45-117) 08/16/21 03:07 Home Medications: Aspirin 81 mg PO DAILY 12/13/13 Losartan/Hydrochlorothiazide [Losartan-Hctz 50-12.5 mg Tab] 1 each PO DAILY 04/06/21 Simvastatin 40 mg PO DAILY 04/06/21 Glipizide [Glipizide ER] 10 mg PO DAILY 06/15/21 Guselkumab [Tremfya] 100 mg SQ DIRECTED 06/15/21 Physician Discharge Instructions: F/U WITH PCP Diet: high potas Activity: Ad migel Followup: Wade Anderson PA [Primary Care Provider] - Time spent managing pt's care (in minutes): 30
== END 2021-08-16 08:00 | disposition home or self-care (01) ==
LOC: ER 11:25 → ERHOLD 15:54
PROVIDERS: ADMIT Internal Medicine; ATTEND Internal Medicine
DX: I95.9 Hypotension, unspecified (principal); R53.1 Weakness; E87.6 Hypokalemia; E11.65 Type 2 diabetes mellitus with hyperglycemia; T38.0X5A Adverse effect of glucocorticoids and synthetic analogues, initial encounter; W19.XXXA Unspecified fall, initial encounter; C20 Malignant neoplasm of rectum; R77.8 Other specified abnormalities of plasma proteins; D64.9 Anemia, unspecified; I10 Essential (primary) hypertension; I25.10 Atherosclerotic heart disease of native coronary artery without angina pectoris; I25.2 Old myocardial infarction; Z79.82 Long term (current) use of aspirin; Z79.84 Long term (current) use of oral hypoglycemic drugs; Z79.899 Other long term (current) drug therapy; Z95.1 Presence of aortocoronary bypass graft; Z20.822 Contact with and (suspected) exposure to COVID-19
CPT/HCPCS: 96361; 93005; 85025 ×2; 80048; 36415; 83735 ×2; 82947 ×4; 84443; 84484 ×3; 80053; 82533; 71045; 96360; 99285; U0003; J1644; J7030 ×2; J3480; G0378 ×3

== ENCOUNTER 2021-08-24 06:32 | Day surgery (SDC) | payer OTHER ==
[2021-08-24] MEDS ORDERED: NA CHLORIDE 0.9% 1,000 ML ONE (07:11)
[2021-08-24] MEDS ORDERED: LIDOCAINE 2% MPF 5 ML VIAL ONE (08:06)
[2021-08-24] MEDS ORDERED: propofoL 200 MG/20 ML VIAL IV ONE (08:06)
--- NOTE | 2021-08-24 08:19 | ENDO RPT ---
[address], [address] EGD PROCEDURE REPORT EXAM DATE: 08/24/2021 PATIENT NAME: Gennaro Serna MR#: [id number] BIRTHDATE: 1955 ATTENDING: Alexsander Lemus DR STATUS: outpatient CUSTOMER SERVICE VOICE: Rayray Cosme RN and Mike Madsen [facility] INDICATIONS: The patient is a 65 yr old Male here for an EGD due to anemia PROCEDURE PERFORMED: EGD with biopsy for H. pylori MEDICATIONS: Per Anesthesia. TOPICAL ANESTHETIC: none CONSENT: The patient understands the risks and benefits of the procedure and understands that these risks include, but are not limited to: sedation, allergic reaction, infection, perforation and/or bleeding. Alternative means of evaluation and treatment include, among others: physical exam, x-rays, and/or surgical intervention. The patient elects to proceed with this endoscopic procedure. DESCRIPTION OF PROCEDURE: During intra-op preparation period all mechanical medical equipment was checked for proper function. Hand hygiene and appropriate measures for infection prevention was taken. Procedure, possible complications, and alternatives including but not limited to the possibility of bleeding, perforation, tear, infection, sepsis, need for surgery, need for blood transfusion, and anesthesia related complications were explained to the patient. After the risks, benefits and alternatives of the procedure were thoroughly explained, Informed consent was verified, confirmed and timeout was successfully executed by the treatment team. The patient was placed in the left lateral position. The patient was anesthetized with topical anesthesia. Through the anesthetized oropharyngeal area, the scope was passed without any difficulty. The EG-[id number] ([id number]) endoscope was introduced through the mouth and advanced to the first portion of the duodenum. Retroflexed views revealed a moderate sized hiatal hernia. The gastroscope was then slowly withdrawn and removed. Erythema was found in the body and the antrum of the stomach. Multiple biopsies were obtained and sent to pathology. Retained food was present in the total stomach. recently ingested food A healed ulcer was noted in the fundus. Located 45 cm from the point of entry. ADVERSE EVENTS: There were no complications. IMPRESSIONS: 1. Erythema was found in the body and the antrum of the stomach 2. Retained food was present in the total stomach 3. A healed ulcer was noted in the fundus RECOMMENDATIONS: 1. acid suppression therapy 2. anti-reflux regimen 3. await biopsy results 4. avoid NSAIDS 5. follow-up of helicobacter pylori status, treat if indicated 6. hemmoccult stools REPEAT EXAM: Return in 1 week(s) for EGD. NPO 12 hours prior to procedure Alexsander Lemus DR eSigned: Alexsander Lemus DR 08/24/2021 8:19 AM cc: CPT CODES: ICD9 CODES: PATIENT NAME: Gennaro Serna MR#: [id number]
[2021-08-24 10:05] VITALS: TEMP 97.3
[2021-08-24 10:09] VITALS: BP 84/59; O2SAT 98
== END 2021-08-24 09:02 | disposition home or self-care (01) ==
LOC: OR 06:32
PROVIDERS: ATTEND Surgery
PROC: 0DB78ZX Excision of Stomach, Pylorus, Via Natural or Artificial Opening Endoscopic, Diagnostic (ICD-10-PCS; 2021-08-24)
PROC: 0DB68ZX Excision of Stomach, Via Natural or Artificial Opening Endoscopic, Diagnostic (ICD-10-PCS; 2021-08-24)
PROC: 0DB48ZX Excision of Esophagogastric Junction, Via Natural or Artificial Opening Endoscopic, Diagnostic (ICD-10-PCS; principal; 2021-08-24 08:00)
DX: K29.50 Unspecified chronic gastritis without bleeding (principal); D64.9 Anemia, unspecified; K62.5 Hemorrhage of anus and rectum; E11.9 Type 2 diabetes mellitus without complications; I10 Essential (primary) hypertension; Z20.822 Contact with and (suspected) exposure to COVID-19; K44.9 Diaphragmatic hernia without obstruction or gangrene
CPT/HCPCS: 82947; 86850; 86900; 86901; 88305; 88312; J2704; J7030; U0003

== ENCOUNTER 2021-09-23 22:32 | Inpatient (IN) | payer OTHER ==
[2021-09-23 22:58] LABS: Blood Gas Oxyhemoglobin 95.1 % (94-97)
[2021-09-23] MEDS ORDERED: IPRATROPIUM BROM 0.5MG/2.5ML ONE (23:10)
[2021-09-23] MEDS ORDERED: LEVALBUTEROL 1.25 MG/3 ML NEB ONE (23:10)
[2021-09-23] MEDS ORDERED: METHYLPREDNISOLONE 125 MG INJ ONE (23:10)
[2021-09-23] MEDS ORDERED: NA CHLORIDE 0.9% 0 ML ONE (23:10)
[2021-09-23] MEDS ORDERED: Levofloxacin 750mg IV 750 MG/150 ML BAG IV ONE (23:11)
[2021-09-23 23:38] LABS: Hematocrit 39.4 % (39.6-49.0); MCV 93.7 fL (80-100); MPV 7.8 fL (7.6-11.3)
[2021-09-23 23:51] LABS: Protime INR 1.12
[2021-09-23] MEDS ORDERED: ACETAMINOPHEN 325 MG TABLET ONE (23:53)
[2021-09-23] MEDS ORDERED: FUROSEMIDE 40 MG/4 ML VIAL ONE (23:54)
[2021-09-24] LABS: Albumin 2.8 g/dL (3.4-5.0); Bilirubin Direct 0.2 mg/dL (0-0.2); Bilirubin Total 0.4 mg/dL (0.2-1.0); Potassium 4.2 mmol/L (3.5-5.1); Protein, Total 6.8 g/dL (6.4-8.2); Troponin High Sensitivity 42.1 pg/mL (<58.9)
--- NOTE | 2021-09-24 00:59 | EDPHYS ---
Physician Documentation [facility] Name: Gennaro Serna Age: 65 yrs Sex: Male : 1955 Arrival Date: 09/23/2021 Time: 22:37 Bed 17 Private MD: ED Physician Rylan Woodard HPI: 09/23 23:07 This 65 yrs old Male presents to ER via EMS with complaints of Shortness Of leonidas Breath. 23:07 The patient has shortness of breath with light activity. Onset: The symptoms/episode leonidas began/occurred 2 day(s) ago. Duration: The symptoms are continuous, and are steadily getting worse. The patient's shortness of breath is aggravated by exertion, light activity, supine position, is alleviated by pursed lip breathing, rest, sitting up, application of supplemental oxygen. Associated signs and symptoms: Pertinent positives: non-productive cough. Severity of symptoms: At their worst the symptoms were moderate in the emergency department the symptoms have improved mildly. The patient has experienced similar episodes in the past, a few times. Historical: - Allergies: 22:43 No Known Allergies; lp1 - Home Meds: 22:43 aspirin 81 mg Oral chew 1 tab once daily [Active]; Simvastatin Oral [Active]; Glipizide lp1 Oral [Active]; losartan oral [Active]; - PMHx: 22:43 diabetes mellitus; Hypertension; Myocardial infarction; rectal cancer; lp1 - PSHx: 22:43 CABG; lp1 - Immunization history:: Adult Immunizations up to date. - Social history:: Smoking status: Patient/guardian denies using tobacco, the patient reports quitting approximately 3 years ago. ROS: 23:10 Constitutional: Negative for fever, chills, and weight loss, Eyes: Negative for injury, leonidas pain, redness, and discharge, ENT: Negative for injury, pain, and discharge, Neck: Negative for injury, pain, and swelling, Cardiovascular: Negative for chest pain, palpitations, and edema, Abdomen/GI: Negative for abdominal pain, nausea, vomiting, diarrhea, and constipation, Back: Negative for injury and pain, : Negative for injury, bleeding, discharge, and swelling, Skin: Negative for injury, rash, and discoloration, Neuro: Negative for headache, weakness, numbness, tingling, and seizure, Psych: Negative for depression, anxiety, suicide ideation, homicidal ideation, and hallucinations, Allergy/Immunology: Negative for hives, rash, and allergies, Endocrine: Negative for neck swelling, polydipsia, polyuria, polyphagia, and marked weight changes, Hematologic/Lymphatic: Negative for swollen nodes, abnormal bleeding, and unusual bruising. 23:10 Respiratory: Positive for cough, shortness of breath, at rest. 23:10 MS/extremity: Positive for swelling. Exam: 23:10 Constitutional: This is a well developed, well nourished patient who is awake, alert, leonidas and in no acute distress. Head/Face: Normocephalic, atraumatic. Eyes: Pupils equal round and reactive to light, extra-ocular motions intact. Lids and lashes normal. Conjunctiva and sclera are non-icteric and not injected. Cornea within normal limits. Periorbital areas with no swelling, redness, or edema. ENT: Nares patent. No nasal discharge, no septal abnormalities noted. Tympanic membranes are normal and external auditory canals are clear. Oropharynx with no redness, swelling, or masses, exudates, or evidence of obstruction, uvula midline. Mucous membranes moist. Neck: Trachea midline, no thyromegaly or masses palpated, and no cervical lymphadenopathy. Supple, full range of motion without nuchal rigidity, or vertebral point tenderness. No Meningismus. Chest/axilla: Normal chest wall appearance and motion. Nontender with no deformity. No lesions are appreciated. Cardiovascular: Regular rate and rhythm with a normal S1 and S2. No gallops, murmurs, or rubs. Normal PMI, no JVD. No pulse deficits. Abdomen/GI: Soft, non-tender, with normal bowel sounds. No distension or tympany. No guarding or rebound. No evidence of tenderness throughout. Back: No spinal tenderness. No costovertebral tenderness. Full range of motion. Male : Normal genitalia with no discharge or lesions. Skin: Warm, dry with normal turgor. Normal color with no rashes, no lesions, and no evidence of cellulitis. Neuro: Awake and alert, GCS 15, oriented to person, place, time, and situation. Cranial nerves II-XII grossly intact. Motor strength 5/5 in all extremities. Sensory grossly intact. Cerebellar exam normal. Normal gait. Psych: Awake, alert, with orientation to person, place and time. Behavior, mood, and affect are within normal limits. 23:10 Respiratory: moderate respiratory distress is noted, Respirations: labored breathing, that is mild, Breath sounds: rales, that are moderate, are located in both bases, are heard in the left posterior lower lobe, right posterior middle lobe and right posterior lower lobe, decreased breath sounds, that are moderate, are scattered, rhonchi, that are mild, stridor, is not appreciated, + upper airway congestion. 23:18 ECG was reviewed by the Attending Physician. [facility] Vital Signs: 22:39 BP 156 / 98; Pulse 139; Resp 26; Temp 99.5(A); Pulse Ox 100% on 50% BiPAP; Weight 81.65 lp1 kg (R); Height 5 ft. 8 in. (172.72 cm); Pain 0/10; 09/24 00:06 BP 138 / 85; Pulse 124; Resp 31; Temp 98.4(A); Pulse Ox 100% on 40% BiPAP; Pain 0/10; fu 01:00 BP 117 / 72; Pulse 121; Resp 26; Pulse Ox 100% ; vc1 02:00 BP 115 / 76; Pulse 109; Resp 25; Pulse Ox 100% ; vc1 02:00 BP 113 / 80; Pulse 106; Resp 20; Pulse Ox 100% on BiPAP; vc1 09/23 22:39 Body Mass Index 27.37 (81.65 kg, 172.72 cm) lp1 MDM: 09/23 22:47 Patient medically screened. leonidas 23:12 Differential diagnosis: Anxiety Reaction Bronchitis CHF exacerbation, Chronic leonidas Obstructive Pulmonary Disease Myocardial Infarction pneumonia, Pneumothorax pulmonary edema, reactive airway disease. Antibiotic administration: Levaquin given. Differential Diagnosis sepsis, flu. The patient's Wells Deep Vein Thrombosis Score was calculated as follows: Heart Rate >100 BPM (1.5 Pts) Malignancy Total Score: 0-2 Pts- Low Risk. The patient's pulmonary embolism risk score was calculated as follows: the patients heart rate is greater than 100 beats per minute (1.5 Pts) malignancy Total Score: 0-2 points. This patient was found to be at low risk for a pulmonary embolism by using the Well's assessment criteria. Immunization status: Influenza vaccine: Data reviewed: vital signs, nurses notes, lab test result(s), EKG, radiologic studies, plain films. 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 Test interpretation: by ED physician or midlevel provider: ECG. Counseling: I had a detailed discussion with the patient and/or guardian regarding: the historical points, exam findings, and any diagnostic results supporting the discharge/admit diagnosis, lab results, radiology results, the need for further work-up and treatment in the hospital. 09/23 22:50 Order name: Basic Metabolic Panel; Complete Time: 00:16 [facility] 09/23 22:50 Order name: CBC with Diff; Complete Time: 23:47 [facility] 09/23 22:50 Order name: LFT's; Complete Time: 00:16 [facility] 09/23 22:50 Order name: Magnesium; Complete Time: 00:16 [facility] 09/23 22:50 Order name: NT PRO-BNP; Complete Time: 00:16 [facility] 09/23 22:50 Order name: PT-INR; Complete Time: 00:16 [facility] 09/23 22:50 Order name: Troponin HS; Complete Time: 00:16 [facility] 09/23 22:50 Order name: XRAY Chest (1 view) [facility] 09/23 22:50 Order name: Blood Culture Adult (2) [facility] 09/23 22:50 Order name: Lactate; Complete Time: 00:16 [facility] 09/23 22:50 Order name: D-Dimer; Complete Time: 00:16 [facility] 09/23 22:50 Order name: Flu; Complete Time: 01:37 [facility] 09/23 22:50 Order name: SARS-COV-2 RT PCR (Document "Date of Onset" if Symptomatic); Complete Time: [facility] 01:20 09/23 22:58 Order name: ABG Arterial Blood Gas [facility] 09/23 22:50 Order name: EKG; Complete Time: 22:51 [facility] 09/23 22:50 Order name: Cardiac monitoring; Complete Time: 23:32 [facility] 09/23 22:50 Order name: EKG - Nurse/Tech; Complete Time: 23:07 [facility] 09/23 22:50 Order name: IV Saline Lock; Complete Time: 23:32 [facility] 09/23 22:50 Order name: BIPAP [facility] 09/24 00:17 Order name: CT Chest For PE Angio [facility] 09/24 00:17 Order name: US Extremity Venous W Compression Carlos [facility] 09/23 22:50 Order name: Labs collected and sent; Complete Time: 23:32 leonidas 09/23 22:50 Order name: O2 Per Protocol; Complete Time: 23:32 [facility] 09/23 22:50 Order name: O2 Sat Monitoring; Complete Time: 23:32 [facility] EC:18 Rate is 128 beats/min. Rhythm is regular. QRS [place] is Normal. [place] interval is normal. leonidas QRS interval is normal. QT interval is normal. No Q waves. T waves are Normal. No ST changes noted. Clinical impression: NSR w/ Non-specific ST/T Changes, Sinus tachycardia, and No evidence of ischemia. Interpreted by me. Reviewed by me. Administered Medications: 22:51 CANCELLED (Duplicate Order): NS 0.9% 500 ml IV at bolus once leonidas 23:05 CANCELLED (Duplicate Order): NS 0.9% 1000 ml IV at 125 ml/hr continuous leonidas 23:42 Drug: SOLU-Medrol (methylPrednisoLONE) 125 mg Route: IVP; Site: left antecubital; [facility] 09/24 01:21 Follow up: Response: No adverse reaction 09/23 23:42 Drug: Xopenex (levalbuterol) 3.75 mg Route: Inhalation; [facility] 09/24 01:20 Follow up: Response: No adverse reaction 09/23 23:42 Drug: AtroVENT (ipratropium) Aerosol 0.5 mg Route: Inhalation; [facility] 09/24 01:20 Follow up: Response: No adverse reaction 09/23 23:42 Drug: levofloxacin 750 mg Volume: 150 ml; Route: IVPB; Infused Over: 90 mins; Site: lp1 left antecubital; 23:53 Drug: Tylenol 650 mg Route: PO; [facility] 09/24 01:20 Follow up: Response: No adverse reaction 09/23 23:54 Drug: Lasix (furosemide) 40 mg Route: IVP; Site: left antecubital; [facility] 09/24 01:20 Follow up: Urine output 900 ml; Response: No adverse reaction fu 03:10 Drug: Lovenox (enoxaparin) 1 mg/kg Route: Sub-Q; Site: right lower abdomen; vc1 Disposition Summary: 09/24/21 00:59 Hospitalization Ordered Provider: Kj Whiteside cha Condition: Stable leonidas Problem: new leonidas Symptoms: have improved leonidas Bed/Room Type: Standard leonidas Hospitalization Status: Inpatient Admission(09/24/21 01:50) mw Location: Telemetry/MedSurg (Inpatient)(09/24/21 01:50) mw Room Assignment: 205(09/24/21 02:33) mw Diagnosis - Dyspnea leonidas - Hypoxemia leonidas - Systolic (congestive) heart failure leonidas - Essential (primary) hypertension leonidas - Pulmonary embolism without acute cor pulmonale - LINGULAR, RIGHT UPPER , RIGHT LOWERcha Forms: - Medication Reconciliation Form leonidas - SBAR form leonidas Signatures: Dispatcher [employer] EDMS Azalea Rasmussen RN RN mw Anderson, Corey, MD MD cha Pena, Laura, RN RN lp1 Lexis Guevara RN RN vc1 Britany Tobias PA PA sb3 George Felix RN fu Corrections: (The following items were deleted from the chart) 09/23 22:51 22:50 NS 0.9% 500 ml IV at bolus once ordered. leonidas leonidas 23:05 22:50 NS 0.9% 1000 ml IV at 125 ml/hr continuous ordered. leonidas leonidas 09/24 01:48 00:59 leonidas mw 01:50 00:59 Inpatient Admission leonidas mw 01:50 00:59 Telemetry/MedSurg (Inpatient) leonidas mw 01:50 01:48 205 mw mw 02:33 01:50 mw mw
--- NOTE | 2021-09-24 00:59 | ER ---
Nurse's Notes [facility] Name: Gennaro Serna Age: 65 yrs Sex: Male : 1955 Arrival Date: 09/23/2021 Time: 22:37 Bed 17 Private MD: Diagnosis: Dyspnea;Hypoxemia;Systolic (congestive) heart failure;Essential (primary) hypertension;Pulmonary embolism without acute cor pulmonale-LINGULAR, RIGHT UPPER , RIGHT LOWER Presentation: 09/23 22:39 Chief complaint: EMS states: Called for patient with worsening shortness of breath over lp1 the last day; Reports difficulty breathing when laying flat; Per EMS, patient at 88% on RA, tachypnea, place on CPAP; Patient's last chemo treatment was on 09/13/21 for rectal cancer; patient placed on BiPAP on arrival to ED. Coronavirus screen: At this time, the client does not indicate any symptoms associated with coronavirus-19. Ebola Screen: No symptoms or risks identified at this time. Initial Sepsis Screen: Does the patient meet any 2 criteria? RR > 20 per min. HR > 90 bpm. Does the patient have a suspected source of infection? Yes: Productive cough/pneumonia. Risk Assessment: Do you want to hurt yourself or someone else? Patient reports no desire to harm self or others. 22:39 Acuity: YUE 2 lp1 22:39 Method Of Arrival: EMS: [facility] lp1 22:44 Onset of symptoms was September 23, 2021. Care prior to arrival: Glucose check: 212. lp1 Triage Assessment: 22:45 General: Appears distressed, Behavior is appropriate for age. Cardiovascular: Edema lp1 pitting to left foot and right foot. Respiratory: Reports shortness of breath Respiratory effort is labored, Respiratory pattern is tachypnea Patient placed on BiPAP: FiO2%: 50 Respiratory Rate: 20 Breath sounds are coarse bilaterally. Onset: The symptoms/episode began/occurred gradually, the patient has moderate shortness of breath. Derm: Skin is pink, warm \T\ dry. Historical: - Allergies: 22:43 No Known Allergies; lp1 - Home Meds: 22:43 aspirin 81 mg Oral chew 1 tab once daily [Active]; Simvastatin Oral [Active]; Glipizide lp1 Oral [Active]; losartan oral [Active]; - PMHx: 22:43 diabetes mellitus; Hypertension; Myocardial infarction; rectal cancer; lp1 - PSHx: 22:43 CABG; lp1 - Immunization history:: Adult Immunizations up to date. - Social history:: Smoking status: Patient/guardian denies using tobacco, the patient reports quitting approximately 3 years ago. Screenin/02 01:18 Abuse screen: Denies threats or abuse. Nutritional screening: No deficits noted. fu Tuberculosis screening: No symptoms or risk factors identified. Fall Risk None identified. Assessment: 09/23 22:50 General: Appears distressed, Behavior is calm, cooperative, appropriate for age. Pain: fu Denies pain. Neuro: Level of Consciousness is awake, alert, obeys commands, Oriented to person, place, time, situation, Burglary Investigator are equal bilaterally Moves all extremities. Speech is normal, Facial symmetry appears normal. Cardiovascular: Rhythm is sinus tachycardia. Respiratory: Airway is patent Respiratory effort is labored, Patient placed on BiPAP: Inspiratory Pressure: 16 Expiratory (EPAP) Pressure: 6 FiO2%: 40 Respiratory Rate: 20. Derm: +2 edema to BLE. 23:30 Reassessment: port-a cath to right upper chest, not accessed. fu 23:53 Reassessment: ddimer 3620, provider notified. lp1 09/24 01:19 Reassessment: Patient and/or family updated on plan of care and expected duration. Pain fu level reassessed. Patient is alert, oriented x 3, equal unlabored respirations, skin warm/dry/pink. Patient denies pain at this time. Patient states symptoms have improved. 03:11 Reassessment: Patient and/or family updated on plan of care and expected duration. Pain vc1 level reassessed. Patient denies pain at this time. Patient states symptoms have improved. Vital Signs: 09/23 22:39 BP 156 / 98; Pulse 139; Resp 26; Temp 99.5(A); Pulse Ox 100% on 50% BiPAP; Weight 81.65 lp1 kg (R); Height 5 ft. 8 in. (172.72 cm); Pain 0/10; 09/24 00:06 BP 138 / 85; Pulse 124; Resp 31; Temp 98.4(A); Pulse Ox 100% on 40% BiPAP; Pain 0/10; fu 01:00 BP 117 / 72; Pulse 121; Resp 26; Pulse Ox 100% ; vc1 02:00 BP 115 / 76; Pulse 109; Resp 25; Pulse Ox 100% ; vc1 02:00 BP 113 / 80; Pulse 106; Resp 20; Pulse Ox 100% on BiPAP; vc1 09/23 22:39 Body Mass Index 27.37 (81.65 kg, 172.72 cm) lp1 ED Course: 09/23 22:37 Patient arrived in ED. lp1 22:39 Arm band placed on right wrist. lp1 22:43 Triage completed. lp1 22:45 Patient has correct armband on for positive identification. Placed in gown. Bed in low lp1 position. Client placed on continuous cardiac and pulse oximetry monitoring. NIBP monitoring applied. 22:47 Rylan Woodard MD is Attending Physician. leonidas 23:19 XRAY Chest (1 view) In Process Unspecified. EDMS 23:25 Inserted saline lock: 20 gauge in left antecubital area, using aseptic technique. Blood lp1 collected. 09/24 00:55 Kj Whiteside is Hospitalizing Provider. leonidas 01:18 No provider procedures requiring assistance completed. fu 01:40 CT Chest For PE Angio In Process Unspecified. EDMS 03:12 Patient admitted, IV remains in place. vc1 Administered Medications: 09/23 22:51 CANCELLED (Duplicate Order): NS 0.9% 500 ml IV at bolus once leonidas 23:05 CANCELLED (Duplicate Order): NS 0.9% 1000 ml IV at 125 ml/hr continuous leonidas 23:42 Drug: SOLU-Medrol (methylPrednisoLONE) 125 mg Route: IVP; Site: left antecubital; lp1 09/24 01:21 Follow up: Response: No adverse reaction fu 09/23 23:42 Drug: Xopenex (levalbuterol) 3.75 mg Route: Inhalation; lp1 09/24 01:20 Follow up: Response: No adverse reaction fu 09/23 23:42 Drug: AtroVENT (ipratropium) Aerosol 0.5 mg Route: Inhalation; lp1 09/24 01:20 Follow up: Response: No adverse reaction fu 09/23 23:42 Drug: levofloxacin 750 mg Volume: 150 ml; Route: IVPB; Infused Over: 90 mins; Site: lp1 left antecubital; 23:53 Drug: Tylenol 650 mg Route: PO; lp1 07/02 01:20 Follow up: Response: No adverse reaction fu 09/23 23:54 Drug: Lasix (furosemide) 40 mg Route: IVP; Site: left antecubital; lp1 09/24 01:20 Follow up: Urine output 900 ml; Response: No adverse reaction fu 03:10 Drug: Lovenox (enoxaparin) 1 mg/kg Route: Sub-Q; Site: right lower abdomen; vc1 Medication: 09/23 22:45 VIS not applicable for this client. lp1 Output: 09/24 01:20 Urine: 900ml; Total: 900ml. fu Outcome: 00:59 Decision to Hospitalize by Provider. leonidas 03:11 Admitted to Med/surg accompanied by nurse, via stretcher, room 205, with oxygen, with vc1 chart, Report called to CHIVO Lee 03:11 Condition: improved 03:11 Instructed on the need for admit. 04:17 Patient left the ED. fu Signatures: Dispatcher [employer] EDOR Rylan Woodard MD MD cha Pena, Laura, RN RN [facility] George Felix RN RN Lexis Guevara RN RN vc1 Corrections: (The following items were deleted from the chart) 00:11 09/23 23:41 Leora Turcios, RN is Primary Nurse. [facility] fu
--- NOTE | 2021-09-24 02:10 | P.HP ---
Certification for Inpatient Patient admitted to: Observation With expected LOS: <2 Midnights Practitioner: I am a practitioner with admitting privileges, knowledge of patient current condition, hospital course, and medical plan of care. Services: Services provided to patient in accordance with Admission requirements found in Title 42 Section 412.3 of the Code of Federal Regulations Patient History Date of Service: 09/24/21 Reason for admission: Acute CHF History of Present Illness: Patient is a 65-year-old male with history of hypertension, CAD, NIDDM, and rectal cancer on chemotherapy (followed by Dr. Colon, last treatment on 09/13) who presented to the ED via EMS with worsening SHOB x 2 weeks, worse when he lies flat. Patient was initially 88% on RA and EMS put him on CPAP. He denies any chest pain. He was tachypneic, tachycardic, and hypertensive. Labs significant for BNP 3260 and ddimer of 3620. ABG resulted pH 7.4, PCO2 32, PO2 105. CXR showed moderate diffuse pulmonary interstitial thickening and patchy opacifications. CTA and venous US pending. He was given solumedrol, breathing treatment, levaquin, lasix, and tylenol in ED. He is still requiring bipap. Upon my assessment, patient reports he is feeling better. Informed patient of need for hospitalization and he agreed. Patient was admitted 5 weeks ago for hypotension and instructed to stop his losartan/HCTZ upon discharge. Allergies No Known Allergies Allergy (Verified 08/24/21 07:25) Home medications list reviewed: Yes Home Medications: Esomeprazole Mag Trihydrate [Nexium] 40 mg PO BID 08/24/21 glipiZIDE [Glipizide] 10 mg PO BID 08/24/21 - Past Medical/Surgical History Diabetic: Yes -: HTN -: Type 2 Diabetes, Non-Insulin Dependent -: CAD -: Rectal Cancer -: CABG Psychosocial/ Personal History: Patient is . - Social History Smoking Status: Former smoker Alcohol use: No CD- Drugs: No Caffeine use: Yes Place of Residence: Home Review of Systems Respiratory: Shortness of Breath, Other (orthopnea) Physical Examination - Physical Exam General: Alert, In no apparent distress, Oriented x3 HEENT: Atraumatic, PERRLA, EOMI, Sclerae nonicteric Neck: Supple, 2+ carotid pulse no bruit, No LAD, Without JVD or thyroid ab normality Respiratory: Crackles/rales Cardiovascular: Regular rate/rhythm, Normal S1 S2 Gastrointestinal: Normal bowel sounds, No tenderness Musculoskeletal: No tenderness Integumentary: No rashes Neurological: Normal speech, Normal strength at 5/5 x4 extr, Normal tone, Normal affect - Studies Laboratory Data (last 24 hrs) 09/23/21 22:30: PT 12.4, INR 1.12 09/23/21 22:30: WBC 10.7, Hgb 12.7 L, Hct 39.4 L, Plt Count 255 09/23/21 22:30: Sodium 137, Potassium 4.2, BUN 11, Creatinine 0.74, Glucose 235 H, Magnesium 2.0, Total Bilirubin 0.4, AST 13 L, ALT 17, Alkaline Phosphatase 136 H Microbiology Data (last 24 hrs): 09/23/21 23:24 Nasopharnyx Influenza Type A Antigen Screen - Final 09/23/21 23:24 Nasopharnyx Influenza Type B Antigen Screen - Final Assessment and Plan - Problems (Diagnosis) (1) Acute CHF Current Visit: Yes Status: Acute Qualifiers: Heart failure type: unspecified Qualified Code(s): I50.9 - Heart failure, unspecified (2) Type 2 diabetes mellitus Current Visit: Yes Status: Chronic Qualifiers: Diabetes mellitus nursing home insulin use: without nursing home use Diabetes mellitus complication status: with hyperglycemia Qualified Code(s): E11.65 - Type 2 diabetes mellitus with hyperglycemia (3) CAD (coronary artery disease) Current Visit: Yes Status: Chronic Qualifiers: Coronary Disease-Associated Artery/Lesion type: bypass graft [place] vs. transplanted heart: [place] heart Associated angina: without angina Qualified Code(s): I25.810 - Atherosclerosis of coronary artery bypass graft(s) without angina pectoris (4) Hypertension Current Visit: Yes Status: Chronic Qualifiers: Hypertension type: primary hypertension Qualified Code(s): I10 - Essential (primary) hypertension (5) Rectal cancer Current Visit: Yes Status: Chronic (6) Hypoxemia Current Visit: Yes Status: Acute (7) Orthopnea Current Visit: Yes Status: Acute - Plan -Continue bipap as needed and wean as appropriate. Monitor O2 saturation. -Breathing treatments PRN. -Ddimer was elevated. CTA and venous US pending. -Cardiology consulted. Echo ordered for morning. patient denies history of CHF. Recent discontinuation of HCTZ -Continue IV lasix. Monitor intake and output -Monitor and replete electrolytes per protocol -Reconcile and continue home medications -Lovenox for VTE ppx -Full code Discharge Plan: Home Plan to discharge in: 24 Hours - Advance Directives Does patient have a Living Will: No Does patient have a Durable POA for Healthcare: No - Code Status/Comfort Care Code Status Assessed: Yes (Full) Critical Care: No Time Spent Managing Pts Care (In Minutes): 50
[2021-09-24] MEDS ORDERED: ENOXAPARIN 80 MG/0.8 ML SQ ONE (03:11)
[2021-09-24] MEDS ORDERED: ACETAMINOPHEN 500 MG TAB PO PRN (03:34)
[2021-09-24] MEDS ORDERED: ALBUTEROL 2.5 MG/3 ML NEB SOL NEB PRN (03:34)
[2021-09-24] MEDS ORDERED: ONDANSETRON 4 MG/2 ML VIAL IV PRN (03:34)
[2021-09-24 03:39] VITALS: BMI 28.4
[2021-09-24] MEDS: INSULIN -REGULAR HUMAN 50 UNIT/0.5 ML ML SQ SCH ×4 (08:43→20:51)
[2021-09-24] MEDS: FUROSEMIDE 20 MG/ 2ML VIAL IV SCH ×2 (08:43→16:59)
[2021-09-24] MEDS ORDERED: ENOXAPARIN 40 MG/0.4 ML SQ SCH (09:00)
--- NOTE | 2021-09-24 10:42 | RAD REPORT ---
EXAM DESCRIPTION: RAD - Chest Single View - 09/24/2021 10:04 am CLINICAL HISTORY: SOB COMPARISON: Chest Single View dated 09/23/2021; Chest Single View dated 08/15/2021; Chest Single View d ated 06/17/2021; Chest Pa And Lat (2 Views) dated 10/22/2020; Chest For Pe Angio dated 09/24/2021 FINDINGS: Lines: Right IJ approach Port-A-Cath with tip overlying the SVC. Lungs: Similar widespread bilateral pulmonary airspace disease . Pleural: No significant pleural effusions or pneumothorax. Cardiac: Cardiomegaly. Sternotomy. Bones: No acute fractures. Other: IMPRESSION: Widespread pulmonary opacities similar to 09/23/2021 and representing multifocal pneumon ia and/or edema.
--- NOTE | 2021-09-24 12:49 | RAD REPORT ---
EXAM DESCRIPTION: US - Extrem Venous W Compress Carlos - 09/24/2021 12:39 pm CLINICAL HISTORY: Pain COMPARISON: No comparisons TECHNIQUE: Real-time sonographic evaluation of the lower extremity deep venous systems was performed using color Doppler, grayscale, and compression. FINDINGS: Bilateral lower extremities. Normal compressibility, flow augmentation, phasic flow and spontaneous flow is identified in both the left and right lower extremity deep venous systems. No intraluminal filling defects seen. IMPRESSION: No DVT in either lower extremity.
--- NOTE | 2021-09-24 20:34 | RAD REPORT ---
EXAM DESCRIPTION: CT - Chest For Pe Angio - 09/24/2021 7:14 am CLINICAL HISTORY: DYSPNEA TECHNIQUE: Axial computed tomographic angiography images of the chest with intravenous contrast. S agittal and coronal reformatted images were created and reviewed. This CT exam was performed using one or more of the following dose reduction techniques: automated exposure control, adjustment of t he mA and/or kV according to patient size, and/or use of iterative reconstruction technique. MIP reconstructed images were created and reviewed. COMPARISON: No relevant prior studies available. FINDINGS: Pulmonary arteries: Segmental and subsegmental right apical, anterior basilar and lingul ar pulmonary arterial filling defects. Aorta: Moderate atherosclerotic disease. No thoracic aortic aneurysm. Lungs: Bilateral paraseptal emphysema. Patchy multifocal groundglass opacities within the lungs john aterally in a somewhat perihilar distribution with mild interstitial thickening. Pleural space: Small bilateral pleural effusions. No pneumothorax. Heart: The heart is mildly enlarged. Coronary artery calcification. No significant pericardial ef fusion. No evidence of RV dysfunction. Bones/joints: Multilevel spondylosis. Prior median sternotomy. No acute fracture. No dislocatio n. Soft tissues: Unremarkable. Lymph nodes: Unremarkable. No enlarged lymph nodes. Liver: Subcentimeter right anterior hepatic hypodensity which is too small to characterize. No foll ow-up imaging is necessary. Pancreas: Moderate pancreatic parenchymal atrophy. IMPRESSION: 1. Right upper and lower lobe and lingular pulmonary embolic disease. 2. Multifocal infiltrates bilaterally and small bilateral pleural effusions. The possibility of pul monary congestion is not excluded. 3. Other findings as above. THIS REPORT CONTAINS FINDINGS THAT MAY BE CRITICAL TO PATIENT CARE: The findings were verbally discus sed via telephone conference with Dr. Rylan Woodard on 09/24/2021 3:00 AM CDT. The results were acknow ledged and understood. Electronically signed by: Pooja Bradley MD 09/24/2021 3:00 AM CDT Due to temporary technical issues with the PACS/Fluency reporting system, reports are being signed by the in house radiologists without review as a courtesy to insure prompt reporting. The interpreting radiologist is fully responsible for the content of the report.
[2021-09-24] MEDS: APIXABAN 5 MG TABLET PO SCH (20:51)
--- NOTE | 2021-09-24 21:22 | RAD REPORT ---
EXAM DESCRIPTION: RAD - Chest Single View - 09/23/2021 11:18 pm CLINICAL HISTORY: Cough. COMPARISON: None. TECHNIQUE: Single view AP chest radiograph(s). FINDINGS: Moderate diffuse pulmonary interstitial thickening and patchy opacification. No definite p leural effusion. No pneumothorax. Borderline cardiac size cardiomegaly. Median sternotomy wires. Left IJ suspected infusion port catheter terminates near the superior cavoatrial junction. IMPRESSION: Moderate diffuse pulmonary interstitial thickening and patchy opacification. Differentia l includes pulmonary edema or infectious/inflammatory etiology. Electronically signed by: Stefani Henning MD 09/23/2021 11:49 PM CDT Due to temporary technical issues with the PACS/Fluency reporting system, reports are being signed by the in house radiologists without review as a courtesy to insure prompt reporting. The interpreting radiologist is fully responsible for the content of the report.
--- NOTE | 2021-09-24 22:49 | CON ---
Date of Consultation: 09/24/2021 Reason For Consultation: Congestive heart failure and pulmonary embolus. History Of Present Illness: Mr. Serna is a 65-year-old white male. He is known to me from office v isits and hospital admissions in the past. He has a history of CAD, status post CABG. Has a history of hypertension, dyslipidemia, diabetes. He has rectal cancer for which he is undergoing chemothera py now. Came in with sudden onset of shortness of breath, was found to have multiple pulmonary embol i on a CT angiography. His EKG showed a right bundle-branch block. His D-dimer was 3620. His PO2 w as 105 on BiPAP. Glucose of 235. BNP is 3260. Denied any chest pain or syncope or palpitation. De nied any fever or chills. Past Medical History: As stated above. Allergies: NONE. Review of Systems: Negative. Social History: Negative. Family History: Noncontributory. Medications: At home include glipizide and Nexium. Physical Examination: General: He was pleasant, in no acute distress. Vital Signs: Stable. Afebrile. HEENT: Negative. Neck: Supple with no bruit. Chest: Clear to auscultation and percussion. Cardiac: Revealed a regular rhythm and rate. No murmurs, gallops, or rubs. Abdomen: Benign. Extremities: Revealed no clubbing, cyanosis, or edema. His pulses were present distally bilaterally . Neurologic: He was nonfocal. Skin: Dry and intact. Diagnostic Data: As stated earlier. Impression And Plan: 1.Pulmonary embolus causing his symptoms. He is on Lovenox, right now. He is on inhalers and low d ose Lasix. He will eventually need an echocardiogram and I will make arrangements for as an outpatie nt after he goes home. He should go home on either Eliquis or Xarelto, pulmonary embolus protocol an d I will leave that up to Dr. Michele. I really do not think he is in congestive heart failure now. 2.Coronary artery bypass graft history. 3.Hypertension, well controlled. 4.Diabetes, well controlled. 5.Dyslipidemia, well controlled. 6.Rectal cancer, on chemotherapy. 7.Elevated BNP and D-dimer and abnormal EKG, all secondary to the pulmonary embolus. I will continu e to follow him. NB/MODL Voice ID: [id number] Report ID: [id number]
[2021-09-25 05:43] LABS: Hematocrit 34.5 % (39.6-49.0); Lymphocytes % 27.6 % (15.3-44.8); MCV 93.1 fL (80-100); RBC Red Blood Cell Count 3.71 M/uL (4.33-5.43)
[2021-09-25 05:58] LABS: Albumin 2.4 g/dL (3.4-5.0); Bilirubin Total 0.3 mg/dL (0.2-1.0); Potassium 3.2 mmol/L (3.5-5.1); Protein, Total 6.1 g/dL (6.4-8.2)
[2021-09-25] MEDS ORDERED: POTASSIUM 25 MEQ EFFERV TAB PO ONE (07:30)
[2021-09-25] MEDS: INSULIN -REGULAR HUMAN 50 UNIT/0.5 ML ML SQ SCH (07:30)
--- NOTE | 2021-09-25 08:18 | RAD REPORT ---
EXAM DESCRIPTION: RAD - Chest Single View - 09/25/2021 7:02 am CLINICAL HISTORY: CHF and PE COMPARISON: Portable September 24 TECHNIQUE: AP portable chest image was obtained 09/25/2021 7:02 am . FINDINGS: Right-sided Port-A-Cath remains in place. The no new tube or line. Bilateral lung field interstitial and alveolar opacification not substantially different from compari son. The more under penetrated technique on today's examination would account for the slight increase in prominence. True progression is unlikely but continued surveillance is needed. Heart size and vasculature are prominent but stable. No pneumothorax or enlarging pleural effusion. IMPRESSION: Bilateral interstitial and alveolar opacification not substantially different from zuleika rison. CHF/ volume overload remains favored over bilateral pneumonia.
[2021-09-25 08:19] VITALS: BP 110/69; TEMP 97.3
[2021-09-25] MEDS: FUROSEMIDE 20 MG/ 2ML VIAL IV SCH (08:29)
[2021-09-25] MEDS: APIXABAN 5 MG TABLET PO SCH (08:29)
--- NOTE | 2021-09-25 08:58 | P.DS ---
Admission Date: 09/24/21 Discharge Date: 09/25/21 Disposition: ROUTINE DISCHARGE Discharge Condition: FAIR Reason for Admission: Acute CHF Brief History of Present Illness: Patient is 65 years of age and admitted with pulmonary embolism Hospital Course: He improved immediately with diuretic and well during the course of his stay treated with some IV Lasix and he had an immediate improvement cultures were positive most likely contaminant was discharged home on Eliquis and levofloxacin possible bilateral pneumonia Vital Signs/Physical Exam: Temp Pulse Resp BP Pulse Ox 97.3 F 98 H 18 110/69 93 09/25/21 08:00 09/25/21 08:29 09/25/21 08:00 09/25/21 08:29 09/25/21 08:00 Laboratory Data at Discharge: WBC 10.8 K/uL (4.3-10.9) 09/25/21 05:11 Hgb 11.3 g/dL (13.6-17.9) L 09/25/21 05:11 Hct 34.5 % (39.6-49.0) L 09/25/21 05:11 Plt Count 239 K/uL (152-406) 09/25/21 05:11 PT 12.4 SECONDS (9.5-12.5) 09/23/21 22:30 INR 1.12 09/23/21 22:30 Sodium 135 mmol/L (136-145) L 09/25/21 05:11 Sodium Cancelled 09/25/21 05:11 Potassium 3.2 mmol/L (3.5-5.1) L 09/25/21 05:11 Potassium Cancelled 09/25/21 05:11 BUN 15 mg/dL (7-18) 09/25/21 05:11 BUN Cancelled 09/25/21 05:11 Creatinine 0.56 mg/dL (0.55-1.3) 09/25/21 05:11 Creatinine Cancelled 09/25/21 05:11 Glucose 172 mg/dL (74-106) H 09/25/21 05:11 Glucose Cancelled 09/25/21 05:11 Magnesium 2.0 mg/dL (1.8-2.4) 09/25/21 05:11 Total Bilirubin 0.3 mg/dL (0.2-1.0) 09/25/21 05:11 AST 13 U/L (15-37) L 09/25/21 05:11 ALT 18 U/L (12-78) 09/25/21 05:11 Alkaline Phosphatase 111 U/L (45-117) 09/25/21 05:11 Home Medications: Aspirin [Aspirin EC 81 MG] 81 mg PO DAILY 09/24/21 Losartan/Hydrochlorothiazide [Losartan-Hctz 50-12.5 mg Tab] 1 tab PO DAILY 09/24 Simvastatin 40 mg PO BEDTIME 09/24/21 glipiZIDE [Glipizide] 10 mg PO BID 09/24/21 Apixaban [Eliquis] 10 mg PO BID #12 tablet 09/25/21 levoFLOXacin [Levaquin*] 750 mg PO DAILY #7 tab 09/25/21 New Medications: Apixaban [Eliquis] 10 mg PO BID #12 tablet levoFLOXacin [Levaquin*] 750 mg PO DAILY #7 tab Physician Discharge Instructions: Patient to take Eliquis 10 mg twice a day for 6 days and then 5 mg twice a day please give him a coupon so that 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 Garces in 1 to 2 weeks Also faxed in 7-day supply of levofloxacin Diet: Regular Followup: Wade Anderson PA [Primary Care Provider] -
[2021-09-25] MEDS ORDERED: levoFLOXacin 250 MG TAB PO SCH (09:00)
[2021-09-25 09:52] LABS: Urine Appearance Clear (Clear); Urine Bilirubin Negative (Negative); Urine Blood Negative (Negative); Urine Color Yellow (Yellow); Urine Glucose Negative (Negative); Urine Protein Negative (Negative); Urine Specific Gravity 1.015 (1.005-1.030); Urine Urobilinogen 0.2 mg/dL (0.2-1.0)
[2021-09-25 12:45] VITALS: O2SAT 93
--- NOTE | 2021-09-26 01:42 | PN ---
Date of Progress Note: 09/25/2021 Mr. Serna had come in with multiple pulmonary emboli. He is on Eliquis, Lovenox, Lasix. Has hypert ension; diabetes; history of CABG; and rectal cancer, on chemotherapy. Has history of dyslipidemia a nd pulmonary embolus in the past. Today, he is doing well. Vital signs are stable. No arrhythmia. Symptoms have improved. I am comfortable with him going home, on anticoagulation and his home medic ation. I will see him in the office in the near future. I believe, knowing his history of previous pulmonary emboli in the past and his multiple cardiac risk factors including diabetes, hypertension, history of CABG, and rectal cancer, I think we should keep him on anticoagulation permanently for now . SO/ALICE Voice ID: [id number] Report ID: [id number]
--- NOTE | 2021-09-27 08:05 | EKG ---
Test Date: 2021-09-23 Test Time: 23:02:42 Bus Repair Supervisor: ALEXUS MEASUREMENT RESULTS: Intervals: Rate: 128 DE: 122 QRSD: 112 QT: 340 QTc: 496 [place]: P: 49 DE: 122 QRS: -28 T: 83 INTERPRETIVE STATEMENTS: Sinus tachycardia Inferior-posterior infarct, possibly acute Anterior infarct, age undetermined ACUTE CO Consider right ventricular involvement in acute inferior infarct Abnormal ECG Compared to ECG 08/15/2021 11:45:03 Myocardial infarct finding now present Sinus rhythm no longer present Right bundle-branch block no longer present Electronically Signed On 09-27-21 07:56:24 CDT by Bryan Anglin
--- OUTSIDE RECORDS SUMMARY | 2021-10-12 06:12 | XMS REPORT | Continuity of Care Document ---
:1955 Author Organization [facility] t Address [address] [place] [address] [address]. [address] [place] [address] Care Team Providers Name Role Phone FUNG Attending Clinician Unavailable Problems This patient has no known problems. Allergies, Adverse Reactions, Alerts This patient has no known allergies or adverse reactions. Medications This patient has no known medications. Procedures This patient has no known procedures. Encounters Start End Encounter Admission Attending Care Care Encounter Source Date/Time Date/Time Type Type Clinicians Facility Department ID 2021-09-29 2021-09-29 Outpatient [facility], COUNTS INCLUDE 234 BEDS AT THE [facility] 2100 [id number] [place] 00:00:00 00:00:[address] 2021-06-02 2021-06-02 Outpatient [facility], COUNTS INCLUDE 234 BEDS AT THE [facility] 2100 [id number] [place] 00:00:00 00:00:[address] 2021-06-02 2021-06-02 Outpatient [facility], COUNTS INCLUDE 234 BEDS AT THE [facility] 2100 [id number] [place] 00:00:00 00:00:[address] 2021-05-31 2021-05-31 Outpatient [facility] [id number] [place] 00:00:00 00:00:[address] 2021-05-30 2021-05-30 Outpatient [facility] 2100 [id number] [place] 00:00:00 00:00:[address] Results This patient has no known results.
== END 2021-09-25 10:30 | disposition home or self-care (01) | DRG 175 ==
LOC: ER 22:32 → ERHOLD 09-24 02:02 → 2ND 09-24 03:00 → OBSVTOIN 09-24 09:52
PROVIDERS: ADMIT Internal Medicine; ATTEND Internal Medicine
DX: I26.99 Other pulmonary embolism without acute cor pulmonale (principal); J15.9 Unspecified bacterial pneumonia; C20 Malignant neoplasm of rectum; I25.10 Atherosclerotic heart disease of native coronary artery without angina pectoris; E11.9 Type 2 diabetes mellitus without complications; R09.02 Hypoxemia; I11.0 Hypertensive heart disease with heart failure; I50.9 Heart failure, unspecified; E78.5 Hyperlipidemia, unspecified; Z79.01 Long term (current) use of anticoagulants; Z86.711 Personal history of pulmonary embolism; Z95.1 Presence of aortocoronary bypass graft; Z20.822 Contact with and (suspected) exposure to COVID-19
CPT/HCPCS: 36415; 71045; 71275; 80048; 80053; 80076; 81003; 82805; 82947; 83605; 83735; 83880; 84484; 85025; 85379; 85610; 87040; 87077; 87186; 87205; 87804; 93005; 93970; 94660; 94760; 96372; 96374; 96375; 99285; G0378; J1650; J1815; J1940; J2930; J7030; Q9967; U0003

== ENCOUNTER 2022-11-02 11:12 | Day surgery (SDC) | payer OTHER ==
[2022-11-02] MEDS ORDERED: NA CHLORIDE 0.9% 1,000 ML ONE (11:27)
[2022-11-02 12:06] VITALS: O2SAT 100
[2022-11-02] MEDS ORDERED: propofoL 200 MG/20 ML VIAL IV ONE (12:52)
[2022-11-02] MEDS ORDERED: LIDOCAINE 1% MPF 5 ML VIAL ONE (12:52)
--- NOTE | 2022-11-02 14:10 | EKG ---
Test Date: 2022-11-02 Test Time: 11:07:34 Ballet Teacher: MIKE MEASUREMENT RESULTS: Intervals: Rate: 75 NM: 132 QRSD: 142 QT: 424 QTc: 473 [place]: P: 49 NM: 132 QRS: 12 T: 37 INTERPRETIVE STATEMENTS: Normal sinus rhythm Right bundle branch block Abnormal ECG Compared to ECG 09/23/2021 23:02:42 Right bundle-branch block now present Sinus tachycardia no longer present Myocardial infarct finding no longer present Electronically Signed On 11-02-22 14:10:[address]
[2022-11-02 16:01] VITALS: BP 131/72; TEMP 97.1
== END 2022-11-02 14:05 | disposition home or self-care (01) ==
LOC: OR 11:12
PROVIDERS: ATTEND Surgery
PROC: 0DBL8ZX Excision of Transverse Colon, Via Natural or Artificial Opening Endoscopic, Diagnostic (ICD-10-PCS; 2022-11-02)
PROC: 0DBM8ZX Excision of Descending Colon, Via Natural or Artificial Opening Endoscopic, Diagnostic (ICD-10-PCS; principal; 2022-11-02 12:45)
DX: Z12.11 Encounter for screening for malignant neoplasm of colon (principal); K64.4 Residual hemorrhoidal skin tags; D12.4 Benign neoplasm of descending colon; D12.3 Benign neoplasm of transverse colon
CPT/HCPCS: 45385; 93005; 82947; 88305; J2704; J2001; J7030

== ENCOUNTER 2024-07-18 07:27 | Day surgery (SDC) | payer OTHER ==
[2024-07-16 11:46] LABS: Absolute Basophils 0.1 K/uL (0-0.5); Absolute Eosinophils 0.2 K/uL (0-0.5); Absolute Lymphocytes (CBC) 2.9 K/uL (0.7-4.9); Absolute Monocytes 0.8 K/uL (0.1-1.3); Absolute Neutrophil 6.4 K/uL (1.8-8.0); Basophils % 0.8 % (0-1.3); Eosinophils % 1.6 % (0-4.4); Hematocrit 44.1 % (39.6-49.0); Hemoglobin 15.6 g/dL (13.6-17.9); Lymphocytes % 27.7 % (15.3-44.8); MCH 31.4 pg (27.0-35.0); MCHC 35.5 g/dL (32.0-36.0); MCV 88.5 fL (80-100); MPV 8.6 fL (7.6-11.3); Monocytes % 7.6 % (3.3-12.3); Neutrophils % 62.3 % (41.7-73.7); Nucleated Red Blood Cells % 0.1 % (0-0); Platelets 238 thou/uL (152-406); RBC Red Blood Cell Count 4.97 M/uL (4.33-5.43); Red Cell Distribution Width 13.2 % (12.1-15.2)
[2024-07-16 12:11] LABS: Anion Gap 5.1 mEq/L (5.0-15.0); Potassium 4.1 mEq/L (3.5-5.1)
[2024-07-18] MEDS: NA CHLORIDE 0.9% 1,000 ML ONE (07:55)
[2024-07-18] MEDS ORDERED: SUCCINYLCHOLINE 20 MG/ML (10 ML) IV ONE (08:21)
[2024-07-18] MEDS ORDERED: LIDOCAINE 1% MPF 5 ML VIAL ONE (08:21)
[2024-07-18] MEDS ORDERED: propofoL 200 MG/20 ML VIAL IV ONE ×2 (08:21)
[2024-07-18 09:44] VITALS: TEMP 97.6
[2024-07-18 10:07] VITALS: BP 116/63; O2SAT 99
== END 2024-07-18 10:04 | disposition home or self-care (01) ==
LOC: OR 07:27
PROVIDERS: ATTEND Surgery
PROC: 0DJD8ZZ Inspection of Lower Intestinal Tract, Via Natural or Artificial Opening Endoscopic (ICD-10-PCS; principal; 2024-07-18 08:45)
DX: Z12.11 Encounter for screening for malignant neoplasm of colon (principal); Z85.038 Personal history of other malignant neoplasm of large intestine; Z91.199 Patient's noncompliance with other medical treatment and regimen due to unspecified reason; Z86.0100 Personal history of colon polyps, unspecified
CPT/HCPCS: 85025; 80048; 36415; 82947; J2704 ×2; J2003; J7030

== ENCOUNTER 2024-08-19 11:07 | Day surgery (SDC) | payer OTHER ==
[2024-08-19 11:15] LABS: Absolute Basophils 0.1 K/uL (0-0.5); Absolute Eosinophils 0.1 K/uL (0-0.5); Absolute Monocytes 0.9 K/uL (0.1-1.3); Basophils % 0.8 % (0-1.3); Eosinophils % 0.5 % (0-4.4); Hemoglobin 15.2 g/dL (13.6-17.9); MCH 30.8 pg (27.0-35.0); MCHC 34.6 g/dL (32.0-36.0); MPV 8.4 fL (7.6-11.3); Neutrophils % 68.7 % (41.7-73.7); Nucleated Red Blood Cells % 0.1 % (0-0); Platelets 232 thou/uL (152-406); RBC Red Blood Cell Count 4.95 M/uL (4.33-5.43); Red Cell Distribution Width 12.7 % (12.1-15.2)
[2024-08-19 11:28] LABS: Anion Gap 9.3 mEq/L (5.0-15.0); Potassium 4.3 mEq/L (3.5-5.1)
[2024-08-19] MEDS: NA CHLORIDE 0.9% 1,000 ML ONE (11:45)
[2024-08-19] MEDS ORDERED: KETOROLAC 30 MG/ML INJ ONE (12:26)
[2024-08-19] MEDS ORDERED: ONDANSETRON 4 MG/2 ML VIAL ONE (12:26)
[2024-08-19] MEDS ORDERED: propofoL 200 MG/20 ML VIAL IV ONE (12:26)
[2024-08-19] MEDS ORDERED: dexAMETHasone 10 MG/ML VIAL ONE (12:26)
[2024-08-19] MEDS ORDERED: FENTANYL CITR 100 MCG/2 ML ONE (12:26)
[2024-08-19] MEDS ORDERED: MIDAZOLAM HCL 2 MG/2 ML INJ ONE (12:27)
[2024-08-19] MEDS ORDERED: LIDOCAINE 2% MPF 5 ML VIAL ONE (12:27)
[2024-08-19] MEDS: CEFAZOLIN SODIUM 2 GM/VIAL ONE (12:39)
[2024-08-19] MEDS: LIDOCAINE HCL/EPINEPHRINE 20 ML MDV ONE (13:04)
--- NOTE | 2024-08-19 13:14 | P.OP ---
Preoperative diagnosis: Removal of Chemotherapy Port Postoperative diagnosis: Removal of Chemotherapy Port Primary procedure: Removal of Chemotherapy Port Anesthesia: GETA + Local Estimated blood loss: <1cc Specimen: Chemo port for ID only Findings: No infection Complications: None Transferred to: Recovery Room Condition: Good
[2024-08-19 13:54] VITALS: O2SAT 99
--- NOTE | 2024-08-19 14:21 | OP ---
Date of Procedure: 08/19/2024 Surgeon: Alexsander Lemus MD, Preoperative Diagnosis: Remove chemotherapy port. Postoperative Diagnosis: Remove chemotherapy port. Procedure Performed: Removal of chemotherapy port. Anesthesia: Endotracheal plus local 1% lidocaine with epinephrine. Estimated Blood Loss: 1 cc. Specimen: Chemo port for ID only. Findings: No infection noted. Complications: None. The patient was transferred to recovery room in good condition. Procedure In Detail: After informed consent was obtained, the patient was prepped and draped in a [facility] sterile fashion. After adequate anesthesia was achieved, the patient was placed in steep Trendel enburg position. I made an incision overlying the chemotherapy port in the right chest on the infrac lavicular position and dissected down to the chemotherapy subcutaneous port, ultimately elevated this area. Removed all of the Prolene sutures circumferentially around, which were attached to the prepe ctoral fascia. I then removed the scar tissue circumferentially using electrocautery. I then pulled the catheter while the patient was maintained in steep Trendelenburg position of the internal jugula r and the exit site. Catheter sent for ID only. Patient was positioned back in neutral position. T here was no bleeding at the end of the procedure. The area was copiously irrigated and the chest sit e was closed with interrupted deep dermal 3-0 Vicryl sutures. Skin was closed with a 4-0 Monocryl in a running fashion. Dermabond was placed over top. The patient tolerated the procedure without incident or complication, transferred to PACU in good condition. All counts were c orrect at the end of the case. JAYY/ISSAL Voice ID: [id number] Report ID: [id number]
[2024-08-19 14:40] VITALS: BP 115/61; TEMP 97.3
== END 2024-08-19 14:35 | disposition home or self-care (01) ==
LOC: OR 11:07
PROVIDERS: ATTEND Surgery
PROC: 0JPT0WZ Removal of Totally Implantable Vascular Access Device from Trunk Subcutaneous Tissue and Fascia, Open Approach (ICD-10-PCS; principal; 2024-08-19 13:00)
DX: C20 Malignant neoplasm of rectum (principal); Z45.2 Encounter for adjustment and management of vascular access device
CPT/HCPCS: 85025; 80048; 36415; 82947; 88300; 36590; J2704; J2003; J2250; J3010; J1100; J2405; J7030

== ENCOUNTER 2025-01-15 12:20 | Day surgery (SDC) | payer OTHER ==
[2025-01-13 09:58] LABS: Absolute Lymphocytes (CBC) 2.7 K/uL (0.7-4.9); Hematocrit 46.4 % (39.6-49.0); Hemoglobin 15.4 g/dL (13.6-17.9); MCH 29.6 pg (27.0-35.0); MCHC 33.3 g/dL (32.0-36.0); MCV 88.8 fL (80-100); MPV 8.5 fL (7.6-11.3); Nucleated RBC Absolute Count 0.0 (0-0); Nucleated Red Blood Cells % 0.1 % (0-0); RBC Red Blood Cell Count 5.22 M/uL (4.33-5.43); White Blood Count 11.40 thou/uL (4.3-10.9)
[2025-01-13 10:09] LABS: PT Prothrombin Time 12.3 SECONDS (10-13.0); PTT, Activated Partial Thromb 27.3 SECONDS (27.2-37.4); Protime INR 1.09
[2025-01-13 10:13] LABS: Anion Gap 9.0 mEq/L (5.0-15.0); BUN Blood Urea Nitrogen 17.0 mg/dL (7-18); Glucose Level 185.0 mg/dL (74-106); Potassium 4.0 mEq/L (3.5-5.1)
[2025-01-15] MEDS ORDERED: ASPIRIN 81 MG CHEWABLE TABLET ONE (13:28)
[2025-01-15] MEDS ORDERED: NA CHLORIDE 0.9% 500 ML ONE (13:28)
[2025-01-15] MEDS ORDERED: HEPA 1000U/500MLS 2,000 UNIT/1,000 ML BAG IV ONE (14:17)
[2025-01-15] MEDS ORDERED: LIDOCAINE 1% 20 ML MDV ONE (14:17)
[2025-01-15] MEDS ORDERED: FENTANYL CITR 100 MCG/2 ML ONE (14:53)
[2025-01-15] MEDS ORDERED: MIDAZOLAM HCL 2 MG/2 ML INJ ONE (14:54)
[2025-01-15 16:22] VITALS: TEMP 98.1
[2025-01-15 17:43] VITALS: BP 159/81; O2SAT 100
--- NOTE | 2025-01-16 01:41 | OP ---
Date of Procedure: 01/15/2025 Surgeon: Abiodun Lane Procedure Performed: Selective coronary angiogram, bilateral. Indication: Carotid stenosis. Access: Right common femoral artery 5-Uruguayan, closed with 5-Uruguayan Mynx closure device. Complications: None. Bleeding: Less than 50 mL. Total Sedation Time: 45 minutes, used fentanyl and versed. Description Of Procedure: After risks, benefits, and alternatives were explained, patient agreed to procedure and signed informed consent. The patient was brought into cardiac catheterization laborato , prepped and draped in sterile fashion. Then, I accessed right common femoral artery using microp uncture kit, ultrasound guidance, placed 5-[place]ayan [place] sheath and took a 4-[place] 3DRC catheter, engaged the right common carotid, took standard views and then left common carotid, took standard vie ws, removed the catheter and the sheath, placed 5-[place]ruguayan Mynx closure device for closure with good he mostasis. Findings: 1. Right common carotid is normal. Right internal carotid and at the bulb, heavily calcified, severe ly stenosed 80% to 90%. The right external carotid artery is normal. 2. The left common carotid is normal. Left internal carotid has 20%. Left external carotid is kilo l. Conclusion: Severe right internal carotid artery stenosis. Recommendation: Endarterectomy. SR/MODL Voice ID: [id number] Report ID: [id number]
== END 2025-01-15 17:41 | disposition home or self-care (01) ==
LOC: CCL 12:20
PROVIDERS: ATTEND Internal Medicine
DX: I65.23 Occlusion and stenosis of bilateral carotid arteries (principal); I10 Essential (primary) hypertension; E78.2 Mixed hyperlipidemia; Z95.1 Presence of aortocoronary bypass graft; Z87.891 Personal history of nicotine dependence; Z79.82 Long term (current) use of aspirin; Z79.85 Long-term (current) use of injectable non-insulin antidiabetic drugs; Z79.02 Long term (current) use of antithrombotics/antiplatelets
CPT/HCPCS: 36222; 36415; 76937; 80048; 82947; 85025; 85610; 85730; 93005; 99152; C1760; C1893; J1644; J2003; J2250; J3010; J7040